=== PATIENT | female | born 1955 | race Two or more races ===

== ENCOUNTER → 2016-09-22 | Outpatient (CLI) | payer BC ==
[~2016-09-22] MED LIST: CHOL1000 PO; LATA0.5S OP; MULT-506 PO; OFLO0.3S OP; OMEG10007 PO; PRED1SUS3 OPR
--- NOTE | 2016-09-23 14:16 | MAMMOGRAPHY REPORT ---
BILATERAL DIGITAL SCREENING MAMMOGRAM TOMOSYNTHESIS WITH CAD: 09/22/2016 CLINICAL HISTORY: Routine screening. Patient has no complaints. TECHNIQUE: Breast tomosynthesis in addition to standard 2D mammography was performed. Current study was also evaluated with a Computer Aided Detection (CAD) system. COMPARISON: Comparison is made to exams dated: 02/04/2015 mammogram, 06/28/2013 mammogram, 09/29/2009 mammogram, and 09/24/2009 mammogram - [facility]. BREAST COMPOSITION: There are scattered areas of fibroglandular density in both breasts. FINDINGS: There is a possible small cluster of calcifications in the left breast middle depth along the posterior nipple line on the MLO view, not well-seen on the cc view. Recommend spot magnificat ion views for further evaluation. The remainder of both breasts are stable compared to prior exams, without suspicious masses, calcifi cations, or areas of architectural distortion noted. IMPRESSION: ACR BI-RADS CATEGORY 0: INCOMPLETE EVALUATION: NEED ADDITIONAL IMAGING EVALUATION Possible small cluster of calcifications in the left breast, for which additional imaging evaluation is recommended. The patient will be called to schedule an appointment. Approximately 10% of breast cancers are not detected with mammography. A negative mammographic repor t should not delay biopsy if a clinically suggestive mass is present. Zuly Newell M.D. /:09/22/2016 17:07:17 Oven Operator Automatic: Martha SORIANO([place])(Janeen)([place]), [facility] letter sent: Addl Imaging 0 BI-RADS Code: ACR BI-RADS Category 0: Incomplete Evaluation: Need Additional Imaging Evaluation
== END | disposition home or self-care (01) ==
LOC: C.MAMM 16:43
PROVIDERS: ATTEND Family Medicine
DX: Z12.31 Encounter for screening mammogram for malignant neoplasm of breast (principal)

== ENCOUNTER → 2016-10-04 | Outpatient (CLI) | payer BC ==
--- NOTE | 2016-10-04 14:37 | MAMMOGRAPHY REPORT ---
UNILATERAL LEFT DIGITAL DIAGNOSTIC MAMMOGRAM: 10/04/2016 CLINICAL HISTORY: 61-year-old woman called back from screening mammography for possible clustered mi crocalcifications in the left breast. TECHNIQUE: Spot magnification left CC and ML views were obtained. COMPARISON: Comparison is made to exams dated: 09/22/2016 mammogram, 02/04/2015 mammogram, 06/28/2013 mammogram, 09/24/2009 mammogram, 09/29/2009 mammogram, and 09/29/2009 ultrasound - [facility]. BREAST COMPOSITION: There are scattered areas of fibroglandular density in the left breast. FINDINGS: There is a faint cluster of punctate and amorphous microcalcifications in the 9:00 middle one third of the left breast that measures approximately 8 x 13 mm. No obvious associated asymmetr y, mass or architectural distortion. In comparing to prior available mammograms, these were not elvira tejas identified in the past and are therefore indeterminate. Definitive characterization with tissu e sampling is recommended. IMPRESSION: ACR BI-RADS CATEGORY 4B: INTERMEDIATE SUSPICION FOR MALIGNANCY 1. Stereotactic guided left breast biopsy is recommended for a faint cluster of punctate and amorph ous microcalcifications measuring approximately 8 x 13 mm in the 9:00 middle one third of the left b reast. These results and recommendations were discussed with the patient at the time of the exam. She was given the phone number to call and schedule the biopsy appointment at her convenience. Approximately 10% of breast cancers are not detected with mammography. A negative mammographic repor t should not delay biopsy if a clinically suggestive mass is present. Anne Salazar M.D. ay/:10/04/2016 10:21:15 Pleater: Sowmya SORIANO([place])(M), [facility] letter sent: Abnormal 4/5 BI-RADS Code: ACR BI-RADS Category 4B: Intermediate Suspicion For Malignancy
== END | disposition home or self-care (01) ==
LOC: C.MAMM 09:18
PROVIDERS: ATTEND Family Medicine
DX: R92.0 Mammographic microcalcification found on diagnostic imaging of breast (principal)

== ENCOUNTER → 2016-10-22 | Outpatient (CLI) | payer BC ==
--- NOTE | 2016-10-22 13:34 | Discharge Instructions ---
Discharge Instructions Procedure Procedure Date: Oct 22, 2016. Reason for visit: Left Microcalcifications. Discharge Discharge Date: Oct 22, 2016. Discharge Diagnosis: status post breast biopsy Instructions Activity Recommendations: Additional Limitations (see below) Return to School/Work: no limitations Recommended Home Diet: No Limitations Provider Instructions: ACTIVITY RECOMMENDATIONS: * No lifting, pushing, pulling or exercising the affected side for three days. RETURN TO SCHOOL/WORK: * You may return to work/school after the procedure, but do not perform any strenuous activities for 24 to 48 hours. MEDICATIONS: * Tylenol (two 325 mg) every four to six hours if needed for mild pain (if not allergic to Tylenol). DIET: * Resume previous diet. SPECIAL CARE INSTRUCTIONS: * Keep biopsy site dry for 24 hours. May shower after 24 hours, but do not soak (bathe) incision. * May remove Tegaderm (plastic patch) tomorrow AFTER showering. * Leave the steri-strips on for one week. Allow the steri-strips to fall off by themselves. If not off after one week, you may remove them. You may place a Bandaid crosswise over the strips, if desired. * Apply ice 10 minutes on and 10 minutes off as needed. * Wear a bra at bedtime to sleep more comfortably for 2-3 days. * Your referring physician should have the results after approximately 5 to 7 business days. * Call for unusual bleeding, fever, drainage, etc or if you have any questions call during normal business hours or after hours call Dr Newell, . FOLLOW UP VISIT: Follow-up with Referring Physician as scheduled. Rosie Díazy Recommendations: Call your doctor if: * Temperature above 101 degrees * Pain not relieved by pain medicine ordered * There is increased drainage or redness from any incision * You have any unanswered questions or concerns. Your Doctors Instructions noted above were prepared by provider Zuly Newell. Patient Signature Section: Patient Instructions Signature Page Beatriz Morseterrence Patient (or Guardian) Signature/Date: I have read and understand the instructions given to me by my caregivers. Caregiver/RN/Doctor Signature/Date: The above-named patient and/or guardian has received patient instructions on this date. + Original Patient Signature Page (only) stays with chart. Please make copy for patient.
--- NOTE | 2016-10-22 14:09 | MAMMOGRAPHY REPORT ---
UNILATERAL LEFT DIGITAL DIAGNOSTIC MAMMOGRAM: 10/22/2016 CLINICAL HISTORY: Status post left breast stereotactic biopsy. TECHNIQUE: Postprocedural left CC and ML views were obtained. COMPARISON: Comparison is made to exams dated: 09/22/2016 mammogram, 02/04/2015 mammogram, 06/28/2013 mammogram, and 09/29/2009 mammogram - [facility]. BREAST COMPOSITION: There are scattered areas of fibroglandular density in the left breast. FINDINGS: A new biopsy marker clip is seen at the site of the biopsied calcifications in the left 9 :00 breast. No significant postbiopsy hematoma is seen. IMPRESSION: POST PROCEDURE IMAGING FOR MARKER PLACEMENT New biopsy marker clip status post stereotactic biopsy of left breast calcifications. Pathology res ults are pending. Approximately 10% of breast cancers are not detected with mammography. A negative mammographic repor t should not delay biopsy if a clinically suggestive mass is present. Zuly Newell M.D. ah/:10/22/2016 14:00:36 Marine Electronics Repairer: Rosalinda SORIANO([place])(M), [facility] BI-RADS Code: Post Procedure Imaging For Marker Placement
--- NOTE | 2016-10-22 14:09 | MAMMOGRAPHY REPORT ---
STEREOTACTIC GUIDED BIOPSY LEFT BREAST: 10/22/2016 CLINICAL HISTORY: Indeterminate calcifications in the left 9:00 breast. PATIENT CONSENT: The procedure, risks, benefits, and alternatives of stereotactic biopsy with clip p lacjennifer were discussed with the patient, and verbal and written consent was obtained. A timeout wa s performed immediately prior to the procedure. PROCEDURE DESCRIPTION: With stereotactic guidance, aseptic technique, and lidocaine as a local anest hetic (1% lidocaine to anesthetize the skin and 1% lidocaine with epinephrine to anesthetize the nina per tissues), the area of concern was sampled multiple times with a 9-gauge vacuum-assisted biopsy n eedle ([employer]iva). The path of approach was medial. The specimen radiograph demonstrates calcifi cations to be present in the samples. A metallic marker clip was placed at the biopsy site. This w as confirmed on postprocedure mammograms. Direct pressure was applied at the biopsy site and hemost asis was readily achieved. The patient tolerated the procedure without complication. She was given wound care instructions. COMPARISON: Comparison is made to exams dated: 10/04/2016 mammogram, 09/22/2016 mammogram, 02/04/2015 m ammogram, 06/28/2013 mammogram, and 09/29/2009 mammogram - [facility]. IMPRESSION: STEREOTACTIC GUIDED BIOPSY Stereotactic biopsy of indeterminate calcifications in the left 9:00 breast, with clip placement. T he patient will receive pathology results from her referring provider. Zuly Newell M.D. /:10/22/2016 13:36:23 Industrial Maintenance Millwright: Rosalinda SORIANO(R)(M), [facility]
== END | disposition home or self-care (01) ==
LOC: C.MAMM 12:45
PROVIDERS: ATTEND Family Medicine
DX: R92.1 Mammographic calcification found on diagnostic imaging of breast (principal)

== ENCOUNTER → 2017-04-13 | Day surgery (SDC) | payer BC ==
[2017-04-05 09:03] VITALS: Ht 160 cm; Wt 62.7 kg
[~2017-04-13] VITALS: Ht 160 cm; Wt 62.7 kg
[~2017-04-13] MED LIST changes: +500ML BSS 0.3ML EPI 1:1000PF IRRIG ONE; +ACETAMINOPHEN 325 MG TAB PO PRN; +AMVISC PLUS 0.8ML SYRINGE INT OCU ONE; +ATROPINE SULFATE 0.1 MG/ML 5ML SYR IV PRN; +BETAXOLOL HCL 0.25% OP SUSP PER DROP CHARGE OPR SCH; +BRIMONIDINE TART 0.2% OP SOLN PER DROP CHARGE ONE; +BSS FLUSH ONE; +ENDOCOAT 0.85ML SYRINGE INT OCU ONE; +EpHEDrine SULFATE INJ 50 MG/ML AMP IV PRN; +EpINEphrine INJ 1MG/ML AMP 1 MG/ML AMP ONE; +LACTATED RINGER'S 1000ML 500 ML IV SCH; +LIDOCAINE 4% OP SOLN DROP CHARGE ONE; +LIDOCAINE 4% OP SOLN DROP CHARGE OPR SCH; +LIDOCAINE HCL 1% MPF 2 ML VIAL ONE; +MIDAZOLAM HCL 1 MG/ML 2ML VIAL ONE; +MIX: 4ML BSS 1ML EPI 1:1000 PF INSTIL ONE; +MOXIFLOXACIN OPH SOLN PER DROP CHARGE ONE; +OCUCOAT 1 ML SOLN IO ONE; +ONDANSETRON INJ 2 MG/ML 2 ML VIAL IV PRN; +POVIDONE-IODINE OP SOLN 30 ML BTL ONE; +PROPARACAINE 0.5% OP SOLN PER DROP CHARGE OPR SCH; +TOBRAMYCIN/DEXAMETHASONE OPH OINT PER APPLN CHARGE ONE
[2017-04-13] MEDS: PHENYLEPHRINE HCL 2.5% OP SOLN PER DROP CHARGE OPR SCH ×2 (06:37→06:42)
[2017-04-13] MEDS: CYCLOPENTOLATE HCL 1% OP SOLN PER DROP CHARGE OPR SCH ×2 (06:39→06:44)
[2017-04-13] MEDS: TROPICAMIDE 1% OP SOLN PER DROP CHARGE OPR SCH ×2 (06:39→06:43)
[2017-04-13] MEDS: MOXIFLOXACIN OPH SOLN PER DROP CHARGE OPR SCH ×2 (06:40→06:50)
--- NOTE | 2017-04-13 06:54 | History & Physical Bridge - SC ---
H&P Re-Evaluation Bridge Note: I have examined the patient, reviewed the History & Physical and in the interval since the performance of the History & Physical I have noted the following changes of clinical significance: No changes noted
[2017-04-13 07:20] VITALS: TEMP 36.2
--- NOTE | 2017-04-13 07:29 | Anesthesia Progress Nt - [facility] ---
Anesthesia Post Op Note Date & Time Apr 13, 2017 at 07:29 Vital Signs Pain Intensity: 0 Vital Signs Past 12 Hours Date Time Temp Pulse Resp B/P (MAP) Pulse Ox O2 Delivery O2 Flow Rate FiO2 04/13/17 07:20 36.2 56 16 122/79 (93) 100 Room Air 04/13/17 06:28 36.6 56 16 150/91 (110) 99 Room Air Notes Mental Status: alert / awake / arousable, participated in evaluation Pt Amnestic to Procedure: Yes Nausea / Vomiting: adequately controlled Pain: adequately controlled Airway Patency, RR, SpO2: stable & adequate BP & HR: stable & adequate Hydration State: stable & adequate Anesthetic Complications: no major complications apparent
--- NOTE | 2017-04-13 07:32 | Discharge Instructions-SurgCtr ---
Discharge Instructions Date of Service Apr 13, 2017. Visit Reason for Visit: Cataract Right Eye Discharge Discharge Diagnosis / Problem: Pseudophakia Right Eye Discharge Goals Goal(s): Improve function Activity Recommendations Activity Limitations: per Instructions/Follow-up section Lifting Limitations: no more than 10 pounds Exercise/Sports Limitations: as tolerated, gradually increase as tolerated May Resume Sexual Activity: when tolerated Shower/Bathe: tomorrow Driving or Machine Use: resume 1 day after discharge As noted Anesthesia . Post Anesthesia Instructions: If you have had General Anesthesia or IV Sedation: * Do not drive today. * Resume driving when surgeon permits. * Do not make important decisions or sign legal documents today. * Call surgeon for: 1. Temperature elevations greater than 101 degrees F. 2. Uncontrollable pain. 3. Excessive bleeding. 4. Persistent nausea and vomiting. 5. Medication intolerance (nausea, vomiting or rash). * For nausea and vomiting use only clear liquids such as: tea, soda, bouillon until nausea subsides, then gradually increase diet as tolerated. * If you have any concerns or questions, call your surgeon's office. If physician is unavailable and it is an emergency, call 911 or go to the nearest emergency room. . Diet Recommendations Home Diet: resume previous diet Procedures Procedures Performed: Right Cataract Phacoemulsification With Intraocular Lens Implant Pending Studies Studies pending at discharge: no Medical Emergencies . Who to Call and When: Medical Emergencies: If at any time you feel your situation is an emergency, please call 911 immediately. . Non-Emergent Contact Non-Emergency issues call your: Bucket Hooker Contact Number: [phone] . . "Provider Documentation" section prepared by Harris Yeh. .
--- NOTE | 2017-04-13 07:34 | [facility] Post Operative Brief Note ---
Immediate Operative Summary Operative Date Apr 13, 2017. Pre-Operative Diagnosis Right Eye Cataract Post-Operative Diagnosis Same Procedure(s) Performed Right Cataract Phacoemulsification With Intraocular Lens Implant Surgeon Dr Yeh Fusing Machine Tender Surgeon(s) None Estimated Blood Loss 0ml Findings Nuclear cataract Fluids (cc crystalloids) 300 ml Specimens None Drains none Anesthesia L/S Complication(s) None Disposition Recovery Room / PACU Good Home
--- NOTE | 2017-04-13 07:53 | Discharge Instructions-SurgCtr ---
Discharge Instructions Date of Service Apr 13, 2017. Visit Reason for Visit: Cataract Right Eye Discharge Discharge Diagnosis / Problem: Pseudophakia right eye Discharge Goals Goal(s): Improve function Medications Restart Stopped Medication(s): ACTIVITY RECOMMENDATIONS: * Light activities. * Mild irritation and blurred vision are common for the first few days. * You may walk outside, read, watch television. * Redness around the white part of the eye is common. MEDICATIONS: Resume previous medications unless instructed otherwise by your surgeon. Start all eye drops at 1 pm today: * Eye drops (today and tomorrow): Prednisone - one drop in operative eye every 3 hours while awake Ofloxacin - one drop in operative eye every 3 hours while awake SPECIAL CARE INSTRUCTIONS: * Tape plastic shield over eye to sleep at night. Call your doctor at with any concerns or problems. FOLLOW UP VISIT: Follow-up with Dr Yeh at [facility] as scheduled. Activity Recommendations Activity Limitations: per Instructions/Follow-up section Lifting Limitations: no more than 10 pounds Exercise/Sports Limitations: as tolerated May Resume Sexual Activity: when tolerated Shower/Bathe: tomorrow Driving or Machine Use: resume 1 day after discharge As noted Anesthesia . Post Anesthesia Instructions: If you have had General Anesthesia or IV Sedation: * Do not drive today. * Resume driving when surgeon permits. * Do not make important decisions or sign legal documents today. * Call surgeon for: 1. Temperature elevations greater than 101 degrees F. 2. Uncontrollable pain. 3. Excessive bleeding. 4. Persistent nausea and vomiting. 5. Medication intolerance (nausea, vomiting or rash). * For nausea and vomiting use only clear liquids such as: tea, soda, bouillon until nausea subsides, then gradually increase diet as tolerated. * If you have any concerns or questions, call your surgeon's office. If physician is unavailable and it is an emergency, call 911 or go to the nearest emergency room. . Diet Recommendations Home Diet: resume previous diet Procedures Procedures Performed: Right Cataract Phacoemulsification With Intraocular Lens Implant Pending Studies Studies pending at discharge: no Medical Emergencies . Who to Call and When: Medical Emergencies: If at any time you feel your situation is an emergency, please call 911 immediately. . Non-Emergent Contact Non-Emergency issues call your: Travel Agency Manager Contact Number: [phone] . . "Provider Documentation" section prepared by Harris Yeh. .
[2017-04-13 08:07] VITALS: BP 111/77; PULSE 55; O2SAT 100
--- NOTE | 2017-04-13 08:35 | OPERATIVE REPORT ---
DATE OF OPERATION: 04/13/2017 PREOPERATIVE DIAGNOSIS: Presenile nuclear cataract, right eye. POSTOPERATIVE DIAGNOSIS: Same. PROCEDURE: Phacoemulsification of right cataract with posterior chamber lens implant, type Bausch & Lomb, model MI60L, power +11.0 Diopters. ANESTHESIA: Local standby. SURGEON: Dr. Yeh. COMPLICATIONS: None. OPERATING TIME: 10 minutes. OPERATION AND FINDINGS: PROCEDURE: The right pupil was dilated. The anesthetic was administered using a topical technique. The right eye was prepped and draped. A speculum was placed. A paracentesis was placed. The chamber was filled with Amvisc Plus and EndoCoat. Epinephrine solution was used. A clear corneal incision was formed. A capsulorrhexis was performed. The nucleus was hydrodissected. The lens was removed with phacoemulsification. Time was 1.78 seconds. The aspiration unit was used to remove the cortex. The capsule was filled with Amvisc Plus. The lens implant was folded and placed into the capsule. The incision was hydrated. The Amvisc was aspirated. The wound was secure. The chamber was deep. The pupil was round. TobraDex ointment and Vigamox solution were placed. The speculum was removed. DISPOSITION: The patient was returned to the recovery room in stable condition. I attest to the content of the Intraoperative Record and any orders documented therein. Any exceptions are noted below. I attest to the content of the Intraoperative Record and any orders documented therein. Any exception s are noted below.
== END | disposition home or self-care (01) ==
LOC: X.SURG 06:13
PROVIDERS: ATTEND Specialist
DX: H25.11 Age-related nuclear cataract, right eye (principal)

== ENCOUNTER → 2017-04-20 | Day surgery (SDC) | payer BC ==
[2017-04-19 09:53] VITALS: Ht 160 cm; Wt 62.7 kg
[~2017-04-20] VITALS: Ht 160 cm; Wt 62.7 kg
[~2017-04-20] MED LIST changes: +BETAXOLOL HCL 0.25% OP SUSP PER DROP CHARGE OPL SCH; -BETAXOLOL HCL 0.25% OP SUSP PER DROP CHARGE OPR SCH; +LIDOCAINE 4% OP SOLN DROP CHARGE OPL SCH; -LIDOCAINE 4% OP SOLN DROP CHARGE OPR SCH; +PROPARACAINE 0.5% OP SOLN PER DROP CHARGE OPL SCH; -PROPARACAINE 0.5% OP SOLN PER DROP CHARGE OPR SCH
[2017-04-20] MEDS: PHENYLEPHRINE HCL 2.5% OP SOLN PER DROP CHARGE OPL SCH ×2 (06:48→06:57)
[2017-04-20] MEDS: TROPICAMIDE 1% OP SOLN PER DROP CHARGE OPL SCH ×2 (06:54→06:58)
[2017-04-20] MEDS: MOXIFLOXACIN OPH SOLN PER DROP CHARGE OPL SCH ×2 (06:54→07:00)
[2017-04-20] MEDS: CYCLOPENTOLATE HCL 1% OP SOLN PER DROP CHARGE OPL SCH ×2 (06:55→06:59)
--- NOTE | 2017-04-20 07:40 | Discharge Instructions-SurgCtr ---
Discharge Instructions Date of Service Apr 20, 2017. Visit Reason for Visit: Cataract Left Eye Discharge Discharge Diagnosis / Problem: lens implant left eye Discharge Goals Goal(s): Improve function Activity Recommendations Activity Limitations: resume your previous activity Lifting Limitations: no more than 10 pounds Exercise/Sports Limitations: gradually increase as tolerated May Resume Sexual Activity: when tolerated Shower/Bathe: tomorrow Driving or Machine Use: resume 1 day after discharge Anesthesia . Post Anesthesia Instructions: If you have had General Anesthesia or IV Sedation: * Do not drive today. * Resume driving when surgeon permits. * Do not make important decisions or sign legal documents today. * Call surgeon for: 1. Temperature elevations greater than 101 degrees F. 2. Uncontrollable pain. 3. Excessive bleeding. 4. Persistent nausea and vomiting. 5. Medication intolerance (nausea, vomiting or rash). * For nausea and vomiting use only clear liquids such as: tea, soda, bouillon until nausea subsides, then gradually increase diet as tolerated. * If you have any concerns or questions, call your surgeon's office. If physician is unavailable and it is an emergency, call 911 or go to the nearest emergency room. . Instructions / Follow-Up Instructions / Follow-Up ACTIVITY RECOMMENDATIONS: * Light activities. * Mild irritation and blurred vision are common for the first few days. * You may walk outside, read, watch television. * Redness around the white part of the eye is common. MEDICATIONS: Resume previous medications unless instructed otherwise by your surgeon. Start all eye drops at 1 pm today: * Eye drops (today and tomorrow): Prednisone - one drop in operative eye every 3 hours while awake Ofloxacin - one drop in operative eye every 3 hours while awake SPECIAL CARE INSTRUCTIONS: * Tape plastic shield over eye to sleep at night. Call your doctor at with any concerns or problems. FOLLOW UP VISIT: Follow-up with Dr Yeh at [place] office as scheduled. Diet Recommendations Home Diet: no limitations Procedures Procedures Performed: Left Eye Cataract Phacoemulsification With Intraocular Lens Implant Pending Studies Studies pending at discharge: no Medical Emergencies . Who to Call and When: Medical Emergencies: If at any time you feel your situation is an emergency, please call 911 immediately. . Non-Emergent Contact Non-Emergency issues call your: Qa Automation Architect Call Non-Emergent contact if: your pain is not controlled [phone] . . "Provider Documentation" section prepared by Harris Yeh. .
[2017-04-20 07:43] VITALS: TEMP 36.4
--- NOTE | 2017-04-20 07:43 | [facility] Operative Report ---
Operative Report Date of Service Apr 20, 2017. Operative Report 1. PREOPERATIVE DIAGNOSIS: Pre Senile nuclear cataract, left eye. 2. POSTOPERATIVE DIAGNOSIS: Pre Senile nuclear cataract, left eye. 3. PROCEDURE: Phacoemulsification of left cataract with posterior chamber lens implant, type Bausch & Lomb, model MI60L, power +12.5 diopters. ANESTHESIA: Local standby. SURGEON: Dr. Yeh. COMPLICATIONS: None. OPERATING TIME: 10 minutes. 4. OPERATION AND FINDINGS: DESCRIPTION OF PROCEDURE: The left pupil was dilated. The anesthetic was administered using a topical technique. The left eye was prepped and draped. A speculum was placed. A clear corneal incision was formed. The chamber was filled with Amvisc Plus and Endocoat. Epinephrine solution was used. A paracentesis was placed. A capsulorrhexis was performed. The nucleus was hydrodissected. The lens was removed with phacoemulsification. Time was 2.02 seconds. The aspiration unit was used to remove the cortex. The capsule was filled with Amvisc Plus. The lens implant was folded and placed into the capsule. The incision was hydrated. The Amvisc was aspirated. The wound was secure. The chamber was deep. The pupil was round. Brimonidine, TobraDex ointment and Vigamox solution were placed. The speculum was removed. The patient was returned to the Recovery Room in stable condition. I attest to the content of the Intraoperative Record and any orders documented therein. Any exceptions are noted below. The scribe's documentation has been prepared in my presence, under my direction and personally reviewed by me in its entirety. I confirm that the note above accurately reflects all work, treatment, procedures, and medical decision making performed by me. I personally scribed for Harris Yeh M.D. ([email or web address]) on 04/20/17 at 07:43. Electronically submitted by Ana Marquez ([email or web address]).
[2017-04-20 08:16] VITALS: BP 124/64; PULSE 52; O2SAT 100
--- NOTE | 2017-04-20 08:23 | Anesthesiology Progress Note ---
Anesthesia Post Op Note Date & Time Apr 20, 2017 at 08:23 Vital Signs Pain Intensity: 4.0 Vital Signs Past 12 Hours Date Time Temp Pulse Resp B/P (MAP) Pulse Ox O2 Delivery O2 Flow Rate FiO2 04/20/17 08:16 52 16 124/64 (84) 100 Room Air 04/20/17 07:43 36.4 49 16 121/76 (91) 95 Room Air 04/20/17 06:38 36.4 54 16 141/86 (104) 100 Room Air Notes Mental Status: alert / awake / arousable, participated in evaluation Pt Amnestic to Procedure: No Nausea / Vomiting: adequately controlled Pain: adequately controlled Airway Patency, RR, SpO2: stable & adequate BP & HR: stable & adequate Hydration State: stable & adequate Anesthetic Complications: no major complications apparent level of amnesia appropriate for MAC
== END | disposition home or self-care (01) ==
LOC: X.SURG 06:25
PROVIDERS: ATTEND Specialist
DX: H26.8 Other specified cataract (principal); J45.909 Unspecified asthma, uncomplicated; Z86.73 Personal history of transient ischemic attack (TIA), and cerebral infarction without residual deficits

== ENCOUNTER → 2017-11-01 | Outpatient (CLI) | payer OTHER ==
[~2017-11-01] MED LIST changes: -500ML BSS 0.3ML EPI 1:1000PF IRRIG ONE; -ACETAMINOPHEN 325 MG TAB PO PRN; -AMVISC PLUS 0.8ML SYRINGE INT OCU ONE; -ATROPINE SULFATE 0.1 MG/ML 5ML SYR IV PRN; -BETAXOLOL HCL 0.25% OP SUSP PER DROP CHARGE OPL SCH; -BRIMONIDINE TART 0.2% OP SOLN PER DROP CHARGE ONE; -BSS FLUSH ONE; -ENDOCOAT 0.85ML SYRINGE INT OCU ONE; -EpHEDrine SULFATE INJ 50 MG/ML AMP IV PRN; -EpINEphrine INJ 1MG/ML AMP 1 MG/ML AMP ONE; -LACTATED RINGER'S 1000ML 500 ML IV SCH; -LIDOCAINE 4% OP SOLN DROP CHARGE ONE; -LIDOCAINE 4% OP SOLN DROP CHARGE OPL SCH; -LIDOCAINE HCL 1% MPF 2 ML VIAL ONE; -MIDAZOLAM HCL 1 MG/ML 2ML VIAL ONE; -MIX: 4ML BSS 1ML EPI 1:1000 PF INSTIL ONE; -MOXIFLOXACIN OPH SOLN PER DROP CHARGE ONE; -OCUCOAT 1 ML SOLN IO ONE; -ONDANSETRON INJ 2 MG/ML 2 ML VIAL IV PRN; -POVIDONE-IODINE OP SOLN 30 ML BTL ONE; -PROPARACAINE 0.5% OP SOLN PER DROP CHARGE OPL SCH; -TOBRAMYCIN/DEXAMETHASONE OPH OINT PER APPLN CHARGE ONE
[2017-11-01 17:04] LABS: BASO % 0.6 %; BASO ABS # 0.05 K/uL (0-0.2); EOS % 1.9 %; EOS ABS # 0.15 K/uL (0-0.5); HEMATOCRIT 35.1 % (37-47); HEMOGLOBIN 11.6 g/dL (12.0-16.0); IG# 0.03 K/uL (0.00-0.02); LYMPH % 32.7 %; LYMPH ABS # 2.59 K/uL (1.2-3.4); MEAN CELL VOLUME 64.4 fL (80-100); MEAN CORPUSCULAR HEMOGLOBIN 21.3 pg (25-34); MONO % 4.3 %; MONO ABS # 0.34 K/uL (0.11-0.59); NEUT % 60.1 %; NEUT ABS # 4.75 K/uL (1.4-6.5); PLATELET COUNT 259 K/uL (130-400); RED CELL DISTRIBUTION WIDTH CV 15.9 % (11.5-14.5); RED CELL DISTRIBUTION WIDTH SD 36.2 fL (36.4-46.3); WHITE BLOOD COUNT 7.91 K/uL (4.8-10.8)
== END | disposition home or self-care (01) ==
LOC: C.LABBC 15:08
PROVIDERS: ATTEND Specialist
DX: M31.6 Other giant cell arteritis (principal)

== ENCOUNTER 2018-12-15 11:01 | Observation (INO) ==
[2018-12-15] MEDS ORDERED: LORazepam 2 MG/ML VIAL (IM USE) ONE (11:08)
[2018-12-15 11:25] LABS: Basophils # (auto) 0.04 K/uL (0-0.2); Basophils % (auto) 0.4 %; Eosinophils # (auto) 0.16 K/uL (0-0.5); Eosinophils % (auto) 1.4 %; Hematocrit (blood only) 38.3 % (37-47); Hemoglobin 12.4 g/dL (12.0-16.0); Immature Granulocytes # (auto) 0.03 K/uL (0.00-0.02); Immature Granulocytes % (auto) 0.3 %; Lymphocytes # (auto) 2.81 K/uL (1.2-3.4); Lymphocytes % (auto) 24.6 %; Mean Corpuscular Hgb Conc 32.4 g/dL (32-36); Mean Corpuscular Volume 65.2 fL (80-100); Monocytes # (auto) 0.89 K/uL (0.11-0.59); Monocytes % (auto) 7.8 %; Neutrophils # (auto) 7.49 K/uL (1.4-6.5); Neutrophils % (auto) 65.5 %; Platelet Count 262 K/uL (130-400); RDW Coefficient of Variation 16.3 % (11.5-14.5); RDW Standard Deviation 37.3 fL (36.4-46.3); Red Blood Count 5.87 M/uL (4.2-5.4); White Blood Count 11.42 K/uL (4.8-10.8)
--- NOTE | 2018-12-15 11:27 | CT Scan Report ---
CT head/brain wo con CLINICAL HISTORY: Stroke evaluation COMPARISON STUDY: MRI dated 08/13/2013 TECHNIQUE: Axial CT of the brain is performed from the vertex to the skull base. IV contrast was not administered for this examination. A dose lowering technique was utilized adhering to the principles of ALARA. CT DOSE: FINDINGS: No intra or extra-axial mass lesions are visualized. There is no CT evidence of acute cortical infarc tion. There is no evidence of midline shift. There is no acute hemorrhage. No calvarial fractures ar e visualized. There is no evidence of pathologic ventricular dilatation. There is no evidence of acute sinusitis IMPRESSION: No acute intracranial findings Electronically signed by: Alexandro Killian M.D. 12/15/2018 11:25 AM
[2018-12-15 11:30] LABS: iSTAT Creatinine 0.8 mg/dl (0.6-1.3); iSTAT Hemoglobin 13.6 g/dl (12.0-16.0); iSTAT Ionized Calcium 1.23 mmol/l (1.12-1.32); iSTAT Potassium 3.6 mEq/L (3.3-5.0)
[2018-12-15] MEDS ORDERED: LORazepam 2 MG/4 ML VIAL ONE (11:32)
[2018-12-15 11:35] LABS: Partial Thromboplastin Ratio 1.1; Partial Thromboplastin Time 28.9 Seconds (21.0-31.0); Prothrombin Time 10.4 Seconds (9.0-12.0)
[2018-12-15 11:42] LABS: Alanine Aminotransferase 26 U/L (12-78); Albumin Level 4.1 gm/dl (3.4-5.0); Aspartate Aminotransferase 17 U/L (15-37); BUN Creatinine Ratio 15.9 (10-20); Blood Urea Nitrogen 14 mg/dl (7-18); Calcium 9.9 mg/dl (8.5-10.1); Carbon Dioxide 26 mmol/L (21-32); Chloride 104 mmol/L (98-107); Glucose 106 mg/dl (70-99); Magnesium 1.9 mg/dl (1.8-2.4); Potassium 3.5 mmol/L (3.5-5.1); Sodium 137 mmol/L (136-145)
[2018-12-15 11:46] LABS: Microcytosis Present; Ovalocytes 1+; Tear Drop Cells 1+
[2018-12-15 11:47] LABS: Alkaline Phosphatase 108 U/L (45-117); Bilirubin,Total 0.9 mg/dl (0.2-1); Globulin 4.2 gm/dl (2.5-4.0); Total Protein 8.3 gm/dl (6.4-8.2); Troponin I < 0.015 ng/ml (0-0.045)
--- NOTE | 2018-12-15 12:14 | XRay Report ---
XR chest 1V portable CLINICAL HISTORY: 63 years-old Female presenting with ams. TECHNIQUE: Portable upright AP view of the chest was obtained. COMPARISON: None. FINDINGS: Cardiomediastinal silhouette normal. Mildly low lung volumes. No focal opacity. No large effusion or pneumothorax. Degenerative changes of the thoracic spine. Upper abdomen normal. IMPRESSION: 1. Mildly low lung volumes. No acute cardiopulmonary disease. Electronically signed by: German Pretty M.D. 12/15/2018 12:13 PM
[2018-12-15 12:46] LABS: Appearance Urine Clear (Clear); Bilirubin Urine Negative (Negative); Blood Urine Negative (Negative); Color Urine Yellow; Glucose Urine UA Negative (Negative); Ketones Urine Negative (Negative); Leukocyte Esterase Urine Negative (Negative); Nitrite Urine Negative (Negative); Protein Urine Negative (Negative); Specific Gravity Urine 1.016 (1.000-1.030); Urobilinogen Urine Negative (Negative); pH Urine 7.5 (4.5-7.5)
--- NOTE | 2018-12-15 15:52 | History & Physical Report ---
Date of Service December 15, 2018 Assessment & Plan (1) Seizure: 63 y/o F Hx Migraines, CVA related to migraine disorder. The pt had acute L sided numbness at home this AM. She describes numbness of her L upper and lower extremities, along with flushing of the L side of her face and conjunctiv al injection. She was driven to the hospital by her and her numbness and flushing had largely resolved on route. She had developed L sided paralysis however and was unable to lift up her L arm. When the ER attending was in the room conversing with the family, she had sudden onset of R sided arm flailing and head twisting lasting nearly a minute. This responded to 2mg of IV Ativan. At no time did she loose consciousness, exhibit incontinence or bite her tongue. She states that the prior day she had a mild headache, but otherwise has not had recent migraines. She has not previously had similar symptoms and does not have a history of seizures. At the time of admission, she has persistent L sided weakness, mostly of the upper extremity and minimal numbness. 1) Constellation of neurological symptoms - including CVA-like symptoms with persistent L weakness and involuntary movement of the R side. I might have speculated that this was a grand mal seizure in the presence of L hemiparalysis, but she did not lose consciousness so we are struggling to explain this. An MRI with/without chavez is pending as are prolactin and CK levels. Migraine with hemiplegia is possible although she has not had a headache since the prior day. We have requested a neurology consult and an EEG. A psychogenic element cannot be ruled out considering her recent distress owing to her sick grandchild. 2) History of migraines - does not currently require any specific treatment. Full code - SCDs - total time for this admit including review of labs, meds, imaging, records - discussion with pt, and ER attending - 45 min Present on Admission?: Yes (2) History of stroke: History of Present Illness Chief Complaint: Seizure activity Primary Care Provider: Kedar Edgar 63 y/o F Hx Migraines, CVA related to migraine disorder. The pt had acute L sided numbness at home this AM. She describes numbness of her L upper and lower extremities, along with flushing of the L side of her face and conjunctival injection. She was driven to the hospital by her and her numbness and flushing had largely resolved on route. She had developed L sided paralysis however and was unable to lift up her L arm. When the ER attending was in the room conversing with the family, she had sudden onset of R sided arm flailing and head twisting lasting nearly a minute. This responded to 2mg of IV Ativan. At no time did she loose consciousness, exhibit incontinence or bite her tongue. She states that the prior day she had a mild headache, but otherwise has not had recent migraines. She has not previously had similar symptoms and does not have a history of seizures. At the time of admission, she has persistent L sided weakness, mostly of the upper extremity and minimal numbness. PMH: 1) Migraine disorder - previously required Topamax prophylaxis. 2) CVA - incidental finding on MRI - thought related to migraines rather than any vascular disease. Surgical: denies Social: Hails from [place] - in [place] since [place]. Does not drink or smoke. She is recently under significant stress as a grandson in [place] is in poor health in a NICU after being born prematurely. Family: States both parents due to "natural causes" Allergies Allergy/AdvReac Type Severity Reaction Status Date / Time Sulfa (Sulfonamide Allergy Severe STOPPED Verified 12/15/18 11:56 Antibiotics) BREATHING Home Medications Home Medications Medication Instructions Recorded Confirmed Type cholecalciferol (vitamin D3) 5,000 unit PO DAILY 12/15/18 12/15/18 History [Vitamin D3] multivitamin 1 tab PO DAILY 12/15/18 12/15/18 History omega [id number] oil [Fish Oil] 1 cap PO DAILY 12/15/18 12/15/18 History peg [id number] [Dry 1 drp OPHTHALMIC (EYE) BID PRN 12/15/18 12/15/18 History Eye Relief] Past Med/Surg History Medical History History of stroke Hx of migraines No pertinent family history No pertinent past medical history Surgical History No pertinent past surgical history Family History Other No pertinent family history Social History Feels Safe at Home: Yes Smoking Status: Unknown if ever smoked Hx Substance Use: No Review of Systems Gen: Denies fevers, night sweats, rigors, fatigue, malaise, weight loss/gain ENT: Denies congestion, throat pain, hearing loss Eyes: Denies acute visual changes CV: Denies CP, palpitations Pulmonary: Denies SOB, cough, wheezing GI: Denies N/V, diarrhea, constipation Neuro: Acute L numbness, weakness, involuntary movement of R arm, head Musculoskeletal: Denies joint pain, inflammation Endocrine: Denies polydipsia, polyuria Skin: Denies acute rashes or ulcers Physical Exam Vital Signs (Past 24 Hours): Last Vital Signs Temp 36.8 C 12/15/18 11:02 Pulse 101 H 12/15/18 15:11 Resp 24 12/15/18 15:00 BP 133/79 12/15/18 15:00 Pulse Ox 96 12/15/18 15:11 Physical Exam: General: Average weight, middle-aged F, no distress - she is lethargic although she had been sedated with Ativan - speech is clear and she is fully oriented ENT: No erythema or exudates, no thrush Eyes: MATTHEW, EOMI Head and neck: Normocephalic, atraumatic, No JVD, neck is supple. Chest/heart: Nontender, S1,2, RRR, no murmurs, no gallops Lungs: CTAB, no wheezing or crackles Abdomen: Nontender, nondistended, BS+ Neuro: AAO x 3, speech is clear - MATTHEW, EOMI, + L weakness - pronator drift, numbness to light touch - coordination impaired due to weakness - could not sit herself up - unclear if this was the effect of the Ativan Musculoskeletal: No joint inflammation, muscle tenderness, FROM Skin: No acute rashes or ulcers Extremities: No clubbing, cyanosis, edema
--- NOTE | 2018-12-15 15:56 | Emergency Department Note ---
Entered by Mary Joseph acting as a scribe for History of Present Illness General Chief complaint: Neuro Symptoms/Deficit Stated complaint: LEGS LEFT SIDE GOING NUMB Time Seen by Provider: 12/15/18 11:09 Source: patient and family Mode of arrival: ambulatory Limitations: altered mental status History of Present Illness Onset (ago): day(s) (today) Location: head (stroke symptoms) Pain Consistency: + constant Quality: + other (Per , the patient complains of feeling tingly.) Associated symptoms: + other (The patient complains of left leg numbness. ) Treatments prior to arrival: aspirin ( Per , the patient took three 5mg baby aspirin this morning after the symptoms started. ) The HPI is limited secondary to patient altered mental status. The patient is a 63 year old female with a history of migraines who presents to the ED with complaints of an episode of altered mental status that onset today at approximately 10:45 AM. Per , the patient complains of feeling tingly. The patient complains of left leg numbness. Per , the patient took three 5mg baby aspirin this morning after the symptoms started. The states she became incoherent not making any sense when speaking, started shaking uncontrollably, her left side of face when read, and she was unable to move her left arm. Home Medications Home Medications Medication Instructions Recorded Confirmed Type cholecalciferol (vitamin D3) 5,000 unit PO DAILY 12/15/18 12/15/18 History [Vitamin D3] multivitamin 1 tab PO DAILY 12/15/18 12/15/18 History omega 2-rvk-nfq-fish oil [Fish Oil] 1 cap PO DAILY 12/15/18 12/15/18 History peg [id number] [Dry 1 drp OPHTHALMIC (EYE) BID PRN 12/15/18 12/15/18 History Eye Relief] Allergies Allergy/AdvReac Type Severity Reaction Status Date / Time Sulfa (Sulfonamide Allergy Severe STOPPED Verified 12/15/18 11:56 Antibiotics) BREATHING Past Med/Surg History Medical History History of stroke Hx of migraines No pertinent family history No pertinent past medical history Surgical History No pertinent past surgical history Family History Other No pertinent family history Social History Feels Safe at Home: Yes Smoking Status: Unknown if ever smoked Hx Substance Use: No Review of Systems See HPI for pertinent positives & negatives. and A total of 10 systems reviewed and were otherwise negative Physical Exam Vital Signs Vital Signs - 24 hr 12/15/18 11:02 12/15/18 11:07 12/15/18 11:10 Temperature 36.8 C Temperature Source Oral Sepsis Recent Fever Within 48 Hours No Sepsis New/Unexplained Change in Mental Status No Sepsis Action Taken by Nursing No Action Required Pulse Rate 115 H 106 H 104 H Pulse Rate from SpO2 Sensor 106 H 104 H Respiratory Rate 20 Respiratory Effort / Characteristics Non-Labored Respiratory Depth Normal Blood Pressure 189/86 H 184/99 H Blood Pressure Mean 120 127 Pulse Oximetry 97 97 97 Oxygen Delivery Method Room Air 12/15/18 11:29 12/15/18 11:30 12/15/18 11:34 Temperature Temperature Source Sepsis Recent Fever Within 48 Hours Sepsis New/Unexplained Change in Mental Status Sepsis Action Taken by Nursing Pulse Rate 108 H 119 H Pulse Rate from SpO2 Sensor 109 H 111 H 113 H Respiratory Rate Respiratory Effort / Characteristics Respiratory Depth Blood Pressure 170/62 H Blood Pressure Mean 98 Pulse Oximetry 98 98 98 Oxygen Delivery Method 12/15/18 11:40 12/15/18 11:54 12/15/18 12:00 Temperature Temperature Source Sepsis Recent Fever Within 48 Hours Sepsis New/Unexplained Change in Mental Status Sepsis Action Taken by Nursing Pulse Rate 99 H 93 H 89 Pulse Rate from SpO2 Sensor 98 H 94 H 90 Respiratory Rate 14 17 Respiratory Effort / Characteristics Respiratory Depth Blood Pressure Blood Pressure Mean Pulse Oximetry 95 96 95 Oxygen Delivery Method 12/15/18 12:10 12/15/18 12:20 12/15/18 12:29 Temperature Temperature Source Sepsis Recent Fever Within 48 Hours Sepsis New/Unexplained Change in Mental Status Sepsis Action Taken by Nursing Pulse Rate 95 H 94 H 93 H Pulse Rate from SpO2 Sensor 95 H 96 H 93 H Respiratory Rate 13 15 21 Respiratory Effort / Characteristics Respiratory Depth Blood Pressure 131/76 Blood Pressure Mean 94 Pulse Oximetry 97 98 92 Oxygen Delivery Method 12/15/18 12:30 12/15/18 12:40 12/15/18 12:50 Temperature Temperature Source Sepsis Recent Fever Within 48 Hours Sepsis New/Unexplained Change in Mental Status Sepsis Action Taken by Nursing Pulse Rate 92 H 91 H 86 Pulse Rate from SpO2 Sensor 92 H 91 H 86 Respiratory Rate 19 19 17 Respiratory Effort / Characteristics Respiratory Depth Blood Pressure 123/76 Blood Pressure Mean 91 Pulse Oximetry 92 92 92 Oxygen Delivery Method 12/15/18 13:00 12/15/18 13:10 12/15/18 13:20 Temperature Temperature Source Sepsis Recent Fever Within 48 Hours Sepsis New/Unexplained Change in Mental Status Sepsis Action Taken by Nursing Pulse Rate 91 H 86 88 Pulse Rate from SpO2 Sensor 90 86 88 Respiratory Rate 16 17 21 Respiratory Effort / Characteristics Respiratory Depth Blood Pressure 131/80 Blood Pressure Mean 97 Pulse Oximetry 96 93 93 Oxygen Delivery Method 12/15/18 13:30 12/15/18 13:40 12/15/18 13:50 Temperature Temperature Source Sepsis Recent Fever Within 48 Hours Sepsis New/Unexplained Change in Mental Status Sepsis Action Taken by Nursing Pulse Rate 87 95 H 86 Pulse Rate from SpO2 Sensor 87 94 H 87 Respiratory Rate 18 18 18 Respiratory Effort / Characteristics Respiratory Depth Blood Pressure 128/72 Blood Pressure Mean 90 Pulse Oximetry 95 94 96 Oxygen Delivery Method 12/15/18 14:00 12/15/18 14:10 12/15/18 14:20 Temperature Temperature Source Sepsis Recent Fever Within 48 Hours Sepsis New/Unexplained Change in Mental Status Sepsis Action Taken by Nursing Pulse Rate 93 H 90 95 H Pulse Rate from SpO2 Sensor 92 H 90 97 H Respiratory Rate 24 18 17 Respiratory Effort / Characteristics Respiratory Depth Blood Pressure 129/72 Blood Pressure Mean 91 Pulse Oximetry 94 95 93 Oxygen Delivery Method 12/15/18 14:30 12/15/18 14:40 12/15/18 14:50 Temperature Temperature Source Sepsis Recent Fever Within 48 Hours Sepsis New/Unexplained Change in Mental Status Sepsis Action Taken by Nursing Pulse Rate 92 H 105 H 90 Pulse Rate from SpO2 Sensor 92 H 101 H 91 H Respiratory Rate 17 22 21 Respiratory Effort / Characteristics Respiratory Depth Blood Pressure 129/84 Blood Pressure Mean 99 Pulse Oximetry 96 96 94 Oxygen Delivery Method 12/15/18 15:00 12/15/18 15:11 Temperature Temperature Source Sepsis Recent Fever Within 48 Hours Sepsis New/Unexplained Change in Mental Status Sepsis Action Taken by Nursing Pulse Rate 98 H 101 H Pulse Rate from SpO2 Sensor 100 H 101 H Respiratory Rate 24 Respiratory Effort / Characteristics Respiratory Depth Blood Pressure 133/79 Blood Pressure Mean 97 Pulse Oximetry 96 96 Oxygen Delivery Method Room Air Room Air GENERAL: Screaming uncontrollably, flailing in bed. HENT: Exam performed. Head: Normocephalic and atraumatic. EYES: Conjunctivae and EOM are normal. Pupils are equal, round, and reactive to light. NECK: Normal range of motion. Neck supple. No JVD present. No spinous process tenderness present. No carotid bruit present. No rigidity. No tracheal deviation and normal range of motion present. No Brudzinski's sign and no Kernig's sign noted. CV: Tachycardic rate, regular rhythm, normal heart sounds and intact distal pulses. There is no peripheral edema. Palpable radial pulses bue. PULM/CHEST: Effort normal and breath sounds normal. No respiratory distress. No stridor. She has no wheezes. She has no rales. Chest Wall: She exhibits no tenderness. ABD: The abdomen is soft. Bowel sounds are normal. No pain on palpation of the abdomen. NEURO: She had a stroke scale of 3 left arm. SKIN: Skin is warm and dry. She is not diaphoretic. No rash. Course 1106: Past medical records reviewed. The patient was evaluated in room A01, and a complete history and physical examination were performed.The patient was immediately seen. She has weakness in her left upper extremity. Given the weakness of the left upper extremity, code stroke was called. 1115: the patient stopped has stopped shaking and flailing in the bed. Patient started speaking and asking question appropriately.I spoke to the patients . He states that the patient has been under a lot of stress recently because of a planned move to [place] and a grandchild that is in NICU. 1128: I was called to CT. The patient was actively screaming and flailing her arms in CT. A CT was able to be obtained. A CTA was not able to be obtained. She was given 1 mg of Ativan to calm down. Stroke team was called and evaluated her at bedside. The patient is answering questions appropriately. 1133: The patient is having jerking motions, possibly appearing like a seizure. 1 mg of IV Ativan was ordered. Code stroke was canceled given the seizure-like symptoms. 1145: The patient was moved to . 1157: Vital signs stable. Labs within normal limits. CT of the head within normal limits. After receiving the Ativan IV, the patients shaking has improved. She is now alert, oriented, and answering questions appropriately. Differentials for this patient include possible psychiatric conditions such as psychosis, acute stress reaction, as well as neurological reaction such as seizure. It is difficult to ascertain if the patient's symptoms were truly due to seizure, however it should be noted that her symptoms resolved after Ativan IV. Patient has been under a lot of stress lately due to a planned move to [place] as well as a grandchild who is in the NICU, the at bedside states this is been causing the patient great deal amount of mental stress. Will discuss with neuro. 1211: I reviewed the patient's case with Dr. Willingham- Neurologist. He thinks that this is a functional headache that could be due to her migraines. He notes that it sounds less like a seizure. He recommends against loading with antiepilep tics. Family does not feel comfortable taking the patient home at this time. Patient will be admitted to the hospitalist service for neuro eval, MRI, and EEG. Dr. Juanita [facility] hospitalist service was notified about the admission. Consultations Consultation #1: 1211: I reviewed the patient's case with Dr. Willingham- Neurologist . He thinks that this is a functional headache that could be due to her migraines. He notes that it sounds less like a seizure. He recommends against loading with antiepileptics. Time: 15:32 Administered Medications Discontinued Medications Lorazepam (Ativan) Confirm Administered Dose 2 mg .ROUTE .STK-MED ONE Stop: 12/15/18 11:09 Last Admin: 12/15/18 11:20 Dose: 1 mg Documented by: [id number] Lorazepam (Ativan) Confirm Administered Dose 2 mg .ROUTE .STK-MED ONE Stop: 12/15/18 11:33 Last Admin: 12/15/18 11:37 Dose: 1 mg Documented by: [id number] Medical Decision Making Medical Records Attestation: I reviewed the patient's medical records. Home Medications Current Medication List: was personally reviewed by me Laboratory Data Attestation: I reviewed the patient's lab results. Result diagrams: 12/15/18 11:10 12/15/18 11:10 Lab Results 12/15/18 12/15/18 12/15/18 Range/Units 11:10 11:10 11:10 WBC 11.42 H (4.8-10.8) K/uL RBC 5.87 H (4.2-5.4) M/uL Hgb 12.4 (12.0-16.0) g/dL POC Hgb (12.0-16.0) g/dl Hct 38.3 (37-47) % POC Hct (37-47) % MCV 65.2 L (80-100) fL MCH 21.1 L (25-34) pg MCHC 32.4 (32-36) g/dL RDW Std Deviation 37.3 (36.4-46.3) fL RDW Coeff of Christina 16.3 H (11.5-14.5) % Plt Count 262 (130-400) K/uL Immature Gran % (Auto) 0.3 % Neut % (Auto) 65.5 % Lymph % (Auto) 24.6 % [place] % (Auto) 7.8 % Eos % (Auto) 1.4 % Baso % (Auto) 0.4 % Immature Gran # (Auto) 0.03 H (0.00-0.02) K/uL Neut # (Auto) 7.49 H (1.4-6.5) K/uL Lymph # (Auto) 2.81 (1.2-3.4) K/uL [place] # (Auto) 0.89 H (0.11-0.59) K/uL Eos # (Auto) 0.16 (0-0.5) K/uL Baso # (Auto) 0.04 (0-0.2) K/uL Microcytosis Present Tear Drop Cells 1+ Ovalocytes 1+ PT 10.4 (9.0-12.0) Seconds INR 1.0 (0.9-1.1) APTT 28.9 (21.0-31.0) Seconds PTT Ratio 1.1 POC Sodium (135-144) mEq/L Sodium 137 (136-145) mmol/L POC Potassium (3.3-5.0) mEq/L Potassium 3.5 (3.5-5.1) mmol/L POC Chloride (101-112) mEq/L Chloride 104 (98-107) mmol/L Carbon Dioxide 26 (21-32) mmol/L POC Total CO2 (24-31) mEq/l Anion Gap 7.0 (3-11) POC Anion Gap (16-25) mmol/L POC BUN (7-18) mg/dl BUN 14 (7-18) mg/dl Creatinine 0.90 (0.6-1.2) mg/dl POC Creatinine (0.6-1.3) mg/dl Est Cr Clr Drug Dosing Not Reportable Est GFR ( Amer) 80.0 Est GFR (Non-Af Amer) 69.0 BUN/Creatinine Ratio 15.9 (10-20) Glucose 106 H (70-99) mg/dl POC Glucose (70-99) POC Glucose (other) (70-99) mg/dl Calcium 9.9 (8.5-10.1) mg/dl POC Ioniz Calcium [place] (1.12-1.32) mmol/l Magnesium 1.9 (1.8-2.4) mg/dl Total Bilirubin 0.9 (0.2-1) mg/dl AST 17 (15-37) U/L ALT 26 (12-78) U/L Alkaline Phosphatase 108 (45-117) U/L Troponin I < 0.015 (0-0.045) ng/ml Total Protein 8.3 H (6.4-8.2) gm/dl Albumin 4.1 (3.4-5.0) gm/dl Globulin 4.2 H (2.5-4.0) gm/dl Albumin/Globulin Ratio 1.0 (0.9-2) Urine Color Urine Appearance (Clear) Urine pH (4.5-7.5) Ur Specific [place] (1.000-1.030) Urine Protein (Negative) Urine Glucose (UA) (Negative) Urine Ketones (Negative) Urine Blood (Negative) Urine Nitrite (Negative) Urine Bilirubin (Negative) Urine Urobilinogen (Negative) Ur Leukocyte Esterase (Negative) 12/15/18 12/15/18 12/15/18 Range/Units 11:10 11:17 12:25 WBC (4.8-10.8) K/uL RBC (4.2-5.4) M/uL Hgb (12.0-16.0) g/dL POC Hgb 13.6 (12.0-16.0) g/dl Hct (37-47) % POC Hct 40 (37-47) % MCV (80-100) fL MCH (25-34) pg MCHC (32-36) g/dL RDW Std Deviation (36.4-46.3) fL RDW Coeff of Christina (11.5-14.5) % Plt Count (130-400) K/uL Immature Gran % (Auto) % Neut % (Auto) % Lymph % (Auto) % [place] % (Auto) % Eos % (Auto) % Baso % (Auto) % Immature Gran # (Auto) (0.00-0.02) K/uL Neut # (Auto) (1.4-6.5) K/uL Lymph # (Auto) (1.2-3.4) K/uL [place] # (Auto) (0.11-0.59) K/uL Eos # (Auto) (0-0.5) K/uL Baso # (Auto) (0-0.2) K/uL Microcytosis Tear Drop Cells Ovalocytes PT (9.0-12.0) Seconds INR (0.9-1.1) APTT (21.0-31.0) Seconds PTT Ratio POC Sodium 139 (135-144) mEq/L Sodium (136-145) mmol/L POC Potassium 3.6 (3.3-5.0) mEq/L Potassium (3.5-5.1) mmol/L POC Chloride 101 (101-112) mEq/L Chloride (98-107) mmol/L Carbon Dioxide (21-32) mmol/L POC Total CO2 24 (24-31) mEq/l Anion Gap (3-11) POC Anion Gap 18.0 (16-25) mmol/L POC BUN 14 (7-18) mg/dl BUN (7-18) mg/dl Creatinine (0.6-1.2) mg/dl POC Creatinine 0.8 (0.6-1.3) mg/dl Est Cr Clr Drug Dosing Est GFR ( Amer) Est GFR (Non-Af Amer) BUN/Creatinine Ratio (10-20) Glucose (70-99) mg/dl POC Glucose 130 H (70-99) POC Glucose (other) 112 H (70-99) mg/dl Calcium (8.5-10.1) mg/dl POC Ioniz Calcium [place] 1.23 (1.12-1.32) mmol/l Magnesium (1.8-2.4) mg/dl Total Bilirubin (0.2-1) mg/dl AST (15-37) U/L ALT (12-78) U/L Alkaline Phosphatase (45-117) U/L Troponin I (0-0.045) ng/ml Total Protein (6.4-8.2) gm/dl Albumin (3.4-5.0) gm/dl Globulin (2.5-4.0) gm/dl Albumin/Globulin Ratio (0.9-2) Urine Color Yellow Urine Appearance Clear (Clear) Urine pH 7.5 (4.5-7.5) Ur Specific [place] 1.016 (1.000-1.030) Urine Protein Negative (Negative) Urine Glucose (UA) Negative (Negative) Urine Ketones Negative (Negative) Urine Blood Negative (Negative) Urine Nitrite Negative (Negative) Urine Bilirubin Negative (Negative) Urine Urobilinogen Negative (Negative) Ur Leukocyte Esterase Negative (Negative) Imaging Data Radiologist's Impression: Radiology results as stated below per my review and the radiologist's interpretation: XR chest 1V portable CLINICAL HISTORY: 63 years-old Female presenting with ams. TECHNIQUE: Portable upright AP view of the chest was obtained. COMPARISON: None. FINDINGS: Cardiomediastinal silhouette normal. Mildly low lung volumes. No focal opacity. No large effusion or pneumothorax. Degenerative changes of the thoracic spine. Upper abdomen normal. IMPRESSION: 1. Mildly low lung volumes. No acute cardiopulmonary disease. Electronically signed by: German Pretty M.D. 12/15/2018 12:13 PM Dictated: 12/15/[address] head/brain wo con CLINICAL HISTORY: Stroke evaluation COMPARISON STUDY: MRI dated 08/13/2013 TECHNIQUE: Axial CT of the brain is performed from the vertex to the skull base. IV contrast was not administered for this examination. A dose lowering technique was utilized adhering to the principles of ALARA. CT DOSE: FINDINGS: No intra or extra-axial mass lesions are visualized. There is no CT evidence of acute cortical infarction. There is no evidence of midline shift. There is no acute hemorrhage. No calvarial fractures are visualized. There is no evidence of pathologic ventricular dilatation. There is no evidence of acute sinusitis IMPRESSION: No acute intracranial findings Electronically signed by: Alexandro Killian M.D. 12/15/2018 11:25 AM Dictated: 12/15/18 1123 Transcribed: 12/15/18 1123 ECG Data Attestation: I personally reviewed and interpreted this ECG as follows: Indication: other (neuro symptoms) Rate (beats per minute): 88 Rhythm: sinus rhythm Findings: + other (SD, QRS, QTC within normal limits. ); no ST depression and no ST elevation Blood Pressure Blood Pressure Findings: Normal blood pressure MDM Narrative 1106: Past medical records reviewed. The patient was evaluated in room A01, and a complete history and physical examination were performed.The patient was immediately seen. She has weakness in her left upper extremity. Given the weakness of the left upper extremity, code stroke was called. 1115: the patient stopped has stopped shaking and flailing in the bed. Patient started speaking and asking question appropriately.I spoke to the patients . He states that the patient has been under a lot of stress recently because of a planned move to [place] and a grandchild that is in NICU. 1128: I was called to CT. The patient was actively screaming and flailing her arms in CT. A CT was able to be obtained. A CTA was not able to be obtained. She was given 1 mg of Ativan to calm down. Stroke team was called and evaluated her at bedside. The patient is answering questions appropriately. 1133: The patient is having jerking motions, possibly appearing like a seizure. 1 mg of IV Ativan was ordered. Code stroke was canceled given the seizure-like symptoms. 1145: The patient was moved to C4. 1157: Vital signs stable. Labs within normal limits. CT of the head within normal limits. After receiving the Ativan IV, the patients shaking has improved. She is now alert, oriented, and answering questions appropriately. Differentials for this patient include possible psychiatric conditions such as psychosis, acute stress reaction, as well as neurological reaction such as seizure. It is difficult to ascertain if the patient's symptoms were truly due to seizure, however it should be noted that her symptoms resolved after Ativan IV. Patient has been under a lot of stress lately due to a planned move to [place] as well as a grandchild who is in the NICU, the at bedside s tates this is been causing the patient great deal amount of mental stress. Will discuss with neuro. 1211: I reviewed the patient's case with Dr. Willingham- Neurologist. He thinks that this is a functional headache that could be due to her migraines. He notes that it sounds less like a seizure. He recommends against loading with antiepileptics. Family does not feel comfortable taking the patient home at this time. Patient will be admitted to the hospitalist service for neuro eval, MRI, and EEG. Dr. Grant [facility] hospitalist service was notified about the admission. Impression & Plan Seizure Discharge Plan Visit Data Chief Complaint: Neuro Symptoms/Deficit Stated Complaint: LEGS LEFT SIDE GOING NUMB ED Provider: J Carlos Levine Discharge Problem: Seizure Patient Disposition: Being Evaluated by Hospitalist Forms Stand Alone Forms: My [facility] Prescriptions Prescriptions: No Action multivitamin Tablet 1 tab PO DAILY RF: 0 Dry Eye Relief 1-0.2-0.2 % Drops 1 drp OPHTHALMIC (EYE) BID PRN (Reason: Dry Eye(S)) RF: 0 cholecalciferol (vitamin D3) [Vitamin D3] 5,000 unit Tablet 5,000 unit PO DAILY RF: 0 omega 7-frg-rff-fish oil [Fish Oil] 1,000 mg (120 mg-180 mg) Capsule 1 cap PO DAILY RF: 0 Referrals Referrals: Kedar Edgar [Primary Care Provider] - The scribe's documentation has been prepared under my direction and personally reviewed by me in its entirety. I confirm that the note above accurately reflects all work, treatment, procedures, and medical decision making performed by me.
[2018-12-15] MEDS ORDERED: ACETAMINOPHEN 325 MG TAB ONE (16:40)
[2018-12-15] MEDS ORDERED: LORazepam 2 MG/4 ML VIAL IV PRN (19:02)
[2018-12-15] MEDS ORDERED: ALUMINUM/MAGNESIUM SUSP 30 ML UDC PO PRN (19:02)
[2018-12-15] MEDS ORDERED: POLYETHYLENE (MIRALAX) 17 GM PACK PO PRN (19:02)
[2018-12-15] MEDS ORDERED: ONDANSETRON INJ 2 MG/ML 2 ML VIAL IV PRN (19:02)
[2018-12-15] MEDS ORDERED: MAGNESIUM HYDROXIDE SUSP 30 ML UDC PO PRN (19:02)
[2018-12-15] MEDS ORDERED: ACETAMINOPHEN 325 MG TAB PO PRN (19:02)
[2018-12-15] MEDS ORDERED: ASPIRIN 81 MG ECTAB PO STA (19:05)
[2018-12-15] MEDS ORDERED: GADOBUTROL 7.5ML VIAL IV PRN (21:03)
--- NOTE | 2018-12-15 21:12 | Magnetic Resonance Report ---
MR brain seizure wo/w con CLINICAL HISTORY: seizure and R weakness mental status change COMPARISON STUDY: 08/13/2013 TECHNIQUE: Utilizing a 1.5 Gwen magnet and dedicated coil, multiplanar, multiecho imaging of the br ain was performed pre and postcontrast administration. IV administration of 8.4 mL of Gadavist contr ast was uneventful. Thin cut coronal T2 imaging was performed according to seizure protocol. FINDINGS: Improved exam compared to the prior study. Small regional focus of increased T2 and diffusi on signal over the right parietal convexity is improved. This Again favors chronic gliosis, possibly on the basis of old posttraumatic change. No new or interval finding is present. The ventricular system is midline. Sella and parasellar regions are unremarkable. Postcontrast images are considered negative for an enhancing lesion. Ventricular system is midline. IMPRESSION: 1. Improved areas of chronic gliosis over the right parietal convexity. 2. No acute process. 3. No abnormal postcontrast enhancement. The above report was generated using voice recognition software. It may contain grammatical, syntax or spelling errors. Electronically signed by: Jovany Flower M.D. 12/15/2018 9:10 PM
[2018-12-15] MEDS: D5NSS + 20MEQ KCL 20 MEQ/1,000 ML BAG IV SCH (21:35)
[2018-12-16] MEDS ORDERED: Nursing to Pharmacy Communication ONE (06:05)
[2018-12-16 07:09] LABS: Basophils # (auto) 0.03 K/uL (0-0.2); Basophils % (auto) 0.5 %; Eosinophils # (auto) 0.04 K/uL (0-0.5); Eosinophils % (auto) 0.6 %; Hemoglobin 10.3 g/dL (12.0-16.0); Immature Granulocytes # (auto) 0.02 K/uL (0.00-0.02); Immature Granulocytes % (auto) 0.3 %; Lymphocytes # (auto) 1.48 K/uL (1.2-3.4); Lymphocytes % (auto) 23.1 %; Mean Corpuscular Hgb Conc 32.2 g/dL (32-36); Mean Corpuscular Volume 64.4 fL (80-100); Monocytes # (auto) 1.01 K/uL (0.11-0.59); Monocytes % (auto) 15.7 %; Neutrophils # (auto) 3.84 K/uL (1.4-6.5); Neutrophils % (auto) 59.8 %; Platelet Count 218 K/uL (130-400); RDW Coefficient of Variation 16.2 % (11.5-14.5); RDW Standard Deviation 37.3 fL (36.4-46.3); Red Blood Count 4.97 M/uL (4.2-5.4); White Blood Count 6.42 K/uL (4.8-10.8)
[2018-12-16 07:40] LABS: BUN Creatinine Ratio 11.4 (10-20); Calcium 8.9 mg/dl (8.5-10.1); Creatinine Clr Calc Pharmacy 60.3 ml/min; Est GFR (African American) 90.9; Est GFR (Non-African American) 78.4; Magnesium 2.1 mg/dl (1.8-2.4); Potassium 3.9 mmol/L (3.5-5.1)
[2018-12-16 07:56] LABS: Anisocytosis Present; Basophilic Stippling 2+; Microcytosis Present; Polychromasia 1+; Schistocytes Occasional
--- NOTE | 2018-12-16 08:32 | Neurology Consultation ---
Date of Consultation December 16, 2018 Assessment & Plan (1) Seizure: After further review of this patient's history and brain MRI findings I suspect she experienced a focal sensorimotor seizure with secondary generalization. Her initial symptoms seem consistent with a jacksonian march. It sounds like she then experienced some secondary generalization with some associated versive type head movements and confusion. I suspect a right hemispheric seizure focus in light of her MRI findings which reveal an area of chronic cortical gliosis affecting the parietal lobe. At this point, I would recommend treatment with an anticonvulsant. I would start with Keppra 500 mg twice daily. I agree with the EEG as ordered. Continue with seizure precautions. It would probably be best for this patient to remain in the hospital for at least another night to ensure clinical stability. History of Present Illness Reason for Consultation: seizure like activity Requesting Physician: Thai Grant MD Attending Physician: Thai Grant MD History of Present Illness The patient is a 63-year old female with a chief complaint of tingling and weakness of the left upper extremity that began acutely yesterday morning at around 10:45 AM. She recalls a feeling of tingling affecting the fingertips of the left hand. This abnormal sensation rapidly spread proximally, up the left arm towards the neck and left side of the face. She was also unable to move the left upper extremity at that time as well. Her brought her to the emergency department. He observed to the left side of her face appeared flushed. She also seemed to be confused. While in the emergency department she began to exhibit more generalized shaking, screaming, and flailing of her arms. Her head apparently twisted to the side as well for about 1 minute. She was treated with Lorazepam. There was no tongue bite or incontinence. The patient does not have any residual weakness or sensory loss this morning. She does complain of a low-grade headache. The patient does not have a known history of seizure disorder although her history is notable for migraines. She also has a history of a chronic right parietal convexity stroke that was originally diagnosed many years ago while she was living in [place]. The reason for the stroke is not entirely clear. She does not take an anticoagulant or other blood thinners. Family history no known family history of epilepsy or stroke. Allergies Allergy/AdvReac Type Severity Reaction Status Date / Time Sulfa (Sulfonamide Allergy Severe STOPPED Verified 12/15/18 11:56 Antibiotics) BREATHING Home Medications Home Medications Medication Instructions Recorded Confirmed Type cholecalciferol (vitamin D3) 5,000 unit PO DAILY 12/15/18 12/15/18 History [Vitamin D3] multivitamin 1 tab PO DAILY 12/15/18 12/15/18 History omega 6-cec-yhz-fish oil [Fish Oil] 1 cap PO DAILY 12/15/18 12/15/18 History peg [id number] [Dry 1 drp OPHTHALMIC (EYE) BID PRN 12/15/18 12/15/18 History Eye Relief] Patient History Medical History History of stroke Hx of migraines No pertinent family history No pertinent past medical history Surgical History No pertinent past surgical history Family History Other No pertinent family history Social History Communication Ability: Effective Dispatch Supervisor Required: No Beliefs That Will Affect Care: None Current Living Situation: Spouse Other Information That Helps Us Care for You: No Feels Safe at Home: Yes Safety Concerns: Feels Safe At This Time Smoking Status: Never smoker Hx Alcohol Use: No Hx Substance Use: No Review of Systems Constitutional: no fever and no chills Eyes: no blind spots and no diplopia Ear, Nose, Mouth, Throat: no hearing loss and no dizziness Respiratory: no cough and no dyspnea Cardiovascular: no chest pain and no palpitations Gastrointestinal: no nausea and no vomiting Genitourinary (Female): no urinary incontinence Musculoskeletal: no myalgia Integumentary: no rash and no lesions Neurologic: as per Subjective / HPI Patient does endorse a history of significant psychosocial stressors related to [place]. Hematologic / Lymphatic: no easy bleeding and no easy bruising Physical Exam Vital Signs (Past 24 Hours): Last Vital Signs Temp 38.4 C H 12/16/18 06:37 Pulse 87 12/16/18 06:37 Resp 20 12/16/18 06:37 BP 120/73 12/16/18 06:37 Pulse Ox 95 12/16/18 06:37 Physical Exam: The patient is a well-developed, well-nourished female. She is lying comfortably in bed. Affect is somewhat flat and she is slightly inattentive. She is alert and fully oriented. Recent and remote memory intact. Concentration slightly impaired. Patient is able to name objects and repeat phrases although her speech is somewhat slow. Patient exhibits an age- appropriate fund of knowledge in terms of vocabulary. She gets very poor eye contact and does not really speak very much, at least in a spontaneous fashion. She does answer questions appropriately. Visual cisneros full to confrontation. Visual acuity normal. Pupils equal round react to light and accommodation. Eye movements normal. There is no nystagmus or gaze preference. Facial sensation intact. There is no facial droop or weakness. Hearing intact. Palate elevates to midline. Shoulder shrug intact. Tongue protrudes to midline. There are no lingual lacerations or signs of tongue bite. Sensation intact all modalities in all 4 limbs although there is perhaps slight agraphesthesia with testing of the left hand. She does not extinguish to double simultaneous stimulation. There are no obvious signs of hemisensory neglect. Deep tendon reflexes are normoactive and intact for the arms and legs bilaterally although perhaps slightly reduced for the left arm and leg as compared to the right. Plantar responses downgoing bilaterally. There is no dysdiadochokinesia or dysmetria with finger to nose or heel to storm bilaterally. Ophthalmoscopic examination reveals normal-appearing optic disks and posterior segments. No papilledema or hemorrhages. Carotid pulses normal bilaterally, no bruits to auscultation. Gait and station not tested due to safety concerns. Patient exhibits normal muscle strength and tone for all 4 limbs. There is no atrophy. No abnormal movements observed. Results & Data Laboratory Results Today's labs reviewed. WBC 6.42, hemoglobin 10.3, platelet count 218, sodium 140, potassium 3.9, BUN 9, creatinine 0.81, glucose 103, magnesium 2.1. A total CK and prolactin drawn yesterday were normal. Diagnostic Findings A CT of the head completed yesterday was negative for hemorrhage or acute process. Images and report reviewed. A follow-up brain MRI was negative for acute or subacute process. There is an area of chronic gliosis over the right parietal convexity potentially related to a remote infarct or old trauma. This abnormality was also seen on an MRI done in 2012 and appears less prominent. Images and report reviewed.
[2018-12-16] MEDS: D5NSS + 20MEQ KCL 20 MEQ/1,000 ML BAG IV SCH (09:02)
[2018-12-16] MEDS: ASPIRIN 81 MG ECTAB PO SCH (09:43)
[2018-12-16] MEDS: levETIRAcetam 500 MG TAB PO SCH ×2 (09:43→19:38)
--- NOTE | 2018-12-16 13:24 | Hospitalist Progress Note ---
Date of Service December 16, 2018 Assessment & Plan (1) Seizure: This patient is a 63 y/o F Hx Migraines, CVA related to migraine disorder. The pt had acute L sided numbness. She describes numbness of her L upper and lower extremities, along with flushing of the L side of her face and conjuncti jeanine injection. She was driven to the hospital by her and her numbness and flushing had largely resolved on route. She had developed L sided paralysis however and was unable to lift up her L arm. When the ER attending was in the room conversing with the family, she had sudden onset of R sided arm flailing and head twisting lasting nearly a minute, along with screening. This responded to 2mg of IV Ativan. At no time did she lose consciousness, exhibit incontinence, or bite her tongue. She states that the prior day she had a mild headache, but otherwise has not had recent migraines. She has not previously had similar symptoms and does not have a history of seizures. She is also had upper respiratory infection symptoms and a fever on the day of admission At the time of admission, she has persistent L sided weakness, mostly of the upper extremity and minimal numbness. MRI of the brain shows improved areas of chronic gliosis over the right parietal convexity. Negative for stroke Seen by neurology and strongly suspected that she had Jacksonian march the left side of the body and then converted to most likely a partial complex seizure. EEG here is negative for seizure activity but this does not exclude a seizure Her fever likely lowered her threshold for seizure in the gliosis on the brain from previous trauma versus migraine? Likely puts her at risk for seizure ac tivity. She has never had a seizure in the past. Clinical picture strongly suggest seizure and neurology has started on Keppra 500 mg p.o. twice daily She is quite drowsy from the medication-if persists, would consider discontinuing Keppra and transitioning to a different antiepileptic drug -We will give lorazepam IV as needed -I discussed the case in depth with neurology-Dr. Willingham is also in agreement that she should not be driving for at least 6 months until she remains seizure- free -I will submit the form to the [facility] that is necessary for reporting -Continue observation overnight and possibly discharged home tomorrow if improved -Continue seizure precautions (2) History of stroke: Thought to be secondary to migraines? This is by history but there is no stroke seen on MRI. Unclear if the area of gliosis represents an area of old stroke? -Is not on any specific treatment for this -Continue aspirin 81 mg daily (3) Hx of migraines: Is not on any specific treatment for this (4) Fever: With a fever on the day of admission and again today -Blood cultures no growth to date With upper respiratory infection symptoms and with similar illness- likely a viral syndrome Flu swab PCR here is negative -Supportive care will be given Acetaminophen for fever as needed (5) DVT prophylaxis: SCDs Disposition-continue observation overnight and weekly discharged home tomorrow Subjective Patient feeling very drowsy today. I had a 45-minute discussion with the patient, her , and later on the phone with neurology today all about her condition and prognosis. Patient reports no further headache today. Still has a little bit of numbness in the left pinky finger. Denies chest pain or shortness of breath, no nausea or vomiting. She is eating well. She did have a fever both yesterday and today. She and her report that she started having a runny nose and sneezing with upper respiratory symptoms the day prior to admission. The himself also has had cold symptoms. She now denies any sinus congestion, no facial pain, no sore throat, has a mild cough. I later came back and reviewed the results of the EEG and the evening. The patient and her were a bit distraught at the fact that she will be recommended to not drive for 6 months as she recently was about to change jobs and she accepted her "dream job" and was going to move to [place] in the very near future Telemetry with normal sinus rhythm, rates in the 80s-90s Review of Systems All systems reviewed & are unremarkable except as noted in HPI & below Physical Exam Vital Signs (Past 24 Hours): Last Vital Signs Temp 37.3 C 12/16/18 11:43 Pulse 82 12/16/18 11:43 Resp 16 12/16/18 11:43 BP 123/66 12/16/18 11:43 Pulse Ox 95 12/16/18 11:43 Constitutional: WD/WN, vitals as above Eyes: PERRL, conjunctivae normal, anicteric sclerae ENMT: external ear and nose normal, oropharynx normal Neck: trachea midline, no thyromegaly Respiratory: normal respiratory effort, lungs clear to auscultation Cardiovascular: RRR, no murmur, no edema Gastrointestinal (Abdomen): normal bowel sounds, soft, nontender, no hepatosplenomegaly Musculoskeletal: Extremities: extremities normal to inspection; no cyanosis and no clubbing Skin: no rashes, warm and dry Neurologic: CN's II-XI intact bilaterally, moves all extremities and awake (But drowsy); no focal motor deficits (Strength 5 out of 5 throughout upper and lower extremities, sensation intact light touch throughout upper and lower extremities) Psychiatric: Orientation: alert and oriented x 3 Eye Contact: + fair eye contact Affect: + flat affect Results & Data Laboratory Results 12/16/18 12/16/18 12/16/18 Range/Units 13:30 06:36 06:36 WBC 6.42 (4.8-10.8) K/uL RBC 4.97 (4.2-5.4) M/uL Hgb 10.3 L (12.0-16.0) g/dL Hct 32.0 L (37-47) % MCV 64.4 L (80-100) fL MCH 20.7 L (25-34) pg MCHC 32.2 (32-36) g/dL RDW Std Deviation 37.3 (36.4-46.3) fL RDW Coeff of Christina 16.2 H (11.5-14.5) % Plt Count 218 (130-400) K/uL Immature Gran % (Auto) 0.3 % Neut % (Auto) 59.8 % Lymph % (Auto) 23.1 % [place] % (Auto) 15.7 % Eos % (Auto) 0.6 % Baso % (Auto) 0.5 % Immature Gran # (Auto) 0.02 (0.00-0.02) K/uL Neut # (Auto) 3.84 (1.4-6.5) K/uL Lymph # (Auto) 1.48 (1.2-3.4) K/uL [place] # (Auto) 1.01 H (0.11-0.59) K/uL Eos # (Auto) 0.04 (0-0.5) K/uL Baso # (Auto) 0.03 (0-0.2) K/uL Polychromasia 1+ Basophilic Stippling 2+ Anisocytosis Present Microcytosis Present Schistocytes Occasional Sodium 140 (136-145) mmol/L Potassium 3.9 (3.5-5.1) mmol/L Chloride 110 H (98-107) mmol/L Carbon Dioxide 24 (21-32) mmol/L Anion Gap 6.0 (3-11) BUN 9 D (7-18) mg/dl Creatinine 0.81 (0.6-1.2) mg/dl Est Cr Clr Drug Dosing 60.3 ml/min Est GFR ( Amer) 90.9 Est GFR (Non-Af Amer) 78.4 BUN/Creatinine Ratio 11.4 (10-20) Glucose 103 H (70-99) mg/dl Calcium 8.9 (8.5-10.1) mg/dl Magnesium 2.1 (1.8-2.4) mg/dl Hepatitis C Ab Screen (Neg) Influenza Type A (PCR) Neg for Influ A (Neg) Influenza Type B (PCR) Neg for Influ B (Neg) 12/16/18 Range/Units 06:36 WBC (4.8-10.8) K/uL RBC (4.2-5.4) M/uL Hgb (12.0-16.0) g/dL Hct (37-47) % MCV (80-100) fL MCH (25-34) pg MCHC (32-36) g/dL RDW Std Deviation (36.4-46.3) fL RDW Coeff of Christina (11.5-14.5) % Plt Count (130-400) K/uL Immature Gran % (Auto) % Neut % (Auto) % Lymph % (Auto) % King[place] % (Auto) % Eos % (Auto) % Baso % (Auto) % Immature Gran # (Auto) (0.00-0.02) K/uL Neut # (Auto) (1.4-6.5) K/uL Lymph # (Auto) (1.2-3.4) K/uL Kingman # (Auto) (0.11-0.59) K/uL Eos # (Auto) (0-0.5) K/uL Baso # (Auto) (0-0.2) K/uL Polychromasia Basophilic Stippling Anisocytosis Microcytosis Schistocytes Sodium (136-145) mmol/L Potassium (3.5-5.1) mmol/L Chloride (98-107) mmol/L Carbon Dioxide (21-32) mmol/L Anion Gap (3-11) BUN (7-18) mg/dl Creatinine (0.6-1.2) mg/dl Est Cr Clr Drug Dosing ml/min Est GFR ( Amer) Est GFR (Non-Af Amer) BUN/Creatinine Ratio (10-20) Glucose (70-99) mg/dl Calcium (8.5-10.1) mg/dl Magnesium (1.8-2.4) mg/dl Hepatitis C Ab Screen Neg (Neg) Influenza Type A (PCR) (Neg) Influenza Type B (PCR) (Neg)
[2018-12-16 14:13] LABS: Influenza A virus by PCR Neg for Influ A (Neg); Influenza B virus by PCR Neg for Influ B (Neg)
--- NOTE | 2018-12-16 14:25 | Procedure Note ---
EEG Procedure Note Date of Service December 16, 2018 Start / End Times Start Time: 11:08A End Time: 11:28A Referring Physician Thai Grant MD History seizure, Amar[place]ovember, left arm, generalized convulsion Home Medication List Home Medications Medication Instructions Recorded Confirmed Type cholecalciferol (vitamin D3) 5,000 unit PO DAILY 12/15/18 12/15/18 History [Vitamin D3] multivitamin 1 tab PO DAILY 12/15/18 12/15/18 History omega 3-mbf-gbt-fish oil [Fish Oil] 1 cap PO DAILY 12/15/18 12/15/18 History peg [id number] [Dry 1 drp OPHTHALMIC (EYE) BID PRN 12/15/18 12/15/18 History Eye Relief] Inpatient Medication List Aspirin (Ecotrin Ectab) 81 mg PO QAM [facility] Stop: 01/15/19 08:59 Last Admin: 12/16/18 09:43 Dose: 81 mg Documented by: [id number] Gadobutrol (Gadavist 7.5ml) 6 ml IV ONCE PRN PRN Reason: Interaction Checking Stop: 12/19/18 21:02 Last Admin: 12/15/18 21:03 Dose: 6 ml Documented by: [id number] Potassium Chloride/Dextrose/Sod Cl (D5nss + 20meq Kcl) 20 meq in 1,000 mls @ 125 mls/hr IV .Q8H [facility] Stop: 12/16/18 15:59 Last Admin: 12/16/18 09:02 Dose: 100 mls/hr Documented by: [id number] Infusion: 12/16/18 09:00 Dose: 0 mls/hr Documented by: [id number] Infusion: 12/16/18 04:18 Dose: 100 mls/hr Documented by: [id number] Admin: 12/15/18 21:35 Dose: 125 mls/hr Documented by: [id number] Levetiracetam (Keppra) 500 mg PO BID [facility] Stop: 01/15/19 09:29 Last Admin: 12/16/18 09:43 Dose: 500 mg Documented by: [id number] Discontinued Medications Acetaminophen (Tylenol) Confirm Administered Dose 650 mg .ROUTE .STK-MED ONE Stop: 12/15/18 16:41 Last Admin: 12/15/18 16:41 Dose: 650 mg Documented by: [id number] Aspirin (Ecotrin Ectab) 81 mg PO NOW STA Stop: 12/15/18 19:06 Last Admin: 12/15/18 21:40 Dose: 81 mg Documented by: [id number] Lorazepam (Ativan) Confirm Administered Dose 2 mg .ROUTE .STK-MED ONE Stop: 12/15/18 11:09 Last Admin: 12/15/18 11:20 Dose: 1 mg Documented by: [id number] Lorazepam (Ativan) Confirm Administered Dose 2 mg .ROUTE .STK-MED ONE Stop: 12/15/18 11:33 Last Admin: 12/15/18 11:37 Dose: 1 mg Documented by: [id number] Description This is a 21 electrode EEG with a single channel dedicated to limited EKG. The electrodes were placed in accordance with the International 10-20 system. There is a posterior dominant rhythm of 10 Hz with normal anterior to posterior organization. The patient was asleep for most of the study, There is admixed generalized theta slowing and intermittent sleep spindles. Photic stimulation w as unremarkable. There is intermittent frontal delta activity, There is no focal or lateralized slowing. There are no epileptiform abnormalities. Interpretation Normal appearing EEG obtained during sleep. Clinical Correlation There are no findings that would suggest a localization related epilepsy or generalized epilepsy syndrome at this time. A normal interictal EEG does not completely exclude a diagnosis of seizure disorder and further clinical correlation is necessary.
[2018-12-16] MEDS ORDERED: ACETAMINOPHEN 325 MG TAB PO STA (19:52)
[2018-12-16] MEDS ORDERED: ACETAMINOPHEN 325 MG TAB PO PRN (19:53)
[2018-12-17] MEDS ORDERED: COUGH DROP (SUGAR FREE) LOZ 24 LOZ/1 BOX BUCCAL ONE (07:44)
--- NOTE | 2018-12-17 08:49 | Neurology Progress Note ---
Date of Service December 17, 2018 Assessment & Plan (1) Seizure: Suspected focal sensorimotor seizure with secondary generalization. Area of chronic ischemic gliosis over the right parietal lobe potential seizure focus. However, EEG completed yesterday was normal. Further, this is this patient's first ever seizure-like episode. Recent and current febrile illness and significant stressors recently related to a pending move likely contributed to this patient's presentation. For the time being, I recommended continuing with Keppra 500 mg twice daily. However, if she does not have any further similar episodes we may be able to taper off this medication. For the time being, I recommended that she not drive. She may bring in additional paperwork from the department of transportation to my office, when she receives it. (2) History of stroke: This patient's brain MRI has revealed an area of chronic gliosis within the cortex/subcortical region of the right parietal lobe. This imaging finding is potentially consistent with a chronic infarct. She does not have a known history of significant head injury. The reason for this imaging finding is not entirely clear although it may have been suggested to the patient previously that it could have been related to an intense migrainous episode, i.e. migrainous stroke. I have recommended a CT angiogram of the head and neck to exclude any significant vascular abnormality. If the angiography reveals significant atherosclerotic disease would recommend starting a daily low-dose aspirin. It would also be reasonable to obtain a transthoracic echocardiogram with bubble study. This study can be completed as an outpatient if necessary. Subjective Follow-up for suspected seizure The patient has not had any further seizure-like episodes since her admission to the hospital. She has not had a recurrence of weakness, sensory loss, or paresthesias. She has not exhibited any confusion. She does complain of a sore throat and cough and has had a fever. Constitutional: + fever Respiratory: + cough Neurologic: as per Subjective / HPI Physical Exam Vital Signs (Past 24 Hours): Last Vital Signs Temp 37.4 C 12/17/18 07:40 Pulse 66 12/17/18 07:40 Resp 16 12/17/18 07:40 BP 115/71 12/17/18 07:40 Pulse Ox 95 12/17/18 07:40 Physical Exam: The patient is alert and fully oriented. Recent and remote memory intact. Attention and concentration normal. Patient exhibits a normal spontaneous speech pattern. Her voice is soft and hoarse sounding. Patient has an age-appropriate fund of knowledge and normal comprehension of vocabulary. Visual cisneros full to confrontation. Visual acuity normal. Pupils equal round reactive to light and accommodation. Eye movements normal. There is no nystagmus. Facial sensation and expression are intact. Tongue and palate midline. Shoulder shrug and hearing intact. There is no pronator drift, ataxia, or dysmetria with finger to nose or heel to storm bilaterally. Strength intact for all 4 limbs. No abnormal movements observed. Results & Data Diagnostic Findings An EEG completed yesterday revealed a normal 10 Hz background rhythm. No epileptiform abnormalities. Normal study.
[2018-12-17] MEDS: levETIRAcetam 500 MG TAB PO SCH (09:09)
[2018-12-17] MEDS: ASPIRIN 81 MG ECTAB PO SCH (09:10)
[2018-12-17] MEDS ORDERED: OPTIRAY 320 125ml IV PRN (13:22)
--- NOTE | 2018-12-17 13:29 | CT Scan Report ---
CT angio neck with con HISTORY: Mental status change h/o right parietal stroke TECHNIQUE: Multiaxial CT angiography of the neck was performed IV contrast: None. All measurem ents were calculated based on NASCET criteria. Maximum intensity projection images were also obtaine d. A dose lowering technique was utilized adhering to the principles of ALARA. COMPARISON STUDY: None. FINDINGS: The aortic arch and proximal great vessels are widely patent. There is no significant sten osis, occlusion, or dissection identified within the bilateral common carotid, internal carotid, or v ertebral arteries. IMPRESSION: No significant stenosis, occlusion, or dissection identified within the carotid or vertebral arteries . The above report was generated using voice recognition software. It may contain grammatical, syntax or spelling errors. Electronically signed by: Jovany Flower M.D. 12/17/2018 1:27 PM
--- NOTE | 2018-12-17 13:31 | CT Scan Report ---
CT angio head wo/w HISTORY: Mental status change h/o right parietal stroke TECHNIQUE: Multiaxial CT angiography of the head was performed IV contrast: None. Maximum in tensity projection images were also obtained. A dose lowering technique was utilized adhering to the principles of ALARA. COMPARISON: None. FINDINGS: There is no mass, hematoma, midline shift, or acute infarct. Visualized intracranial grinder set up operator internal al carotid arteries, distal vertebral arteries, and basilar artery are widely patent. There is no sig nificant stenosis, occlusion, or aneurysm seen within the bilateral ACAs, MCAs, or director of nurses registry. IMPRESSION: No significant stenosis, occlusion, or aneurysm within the [place]. The above report was generated using voice recognition software. It may contain grammatical, syntax or spelling errors. Electronically signed by: Jovany Flower M.D. 12/17/2018 1:29 PM
[2018-12-17] MEDS ORDERED: levETIRAcetam 500 MG TAB PO ONE (14:07)
--- NOTE | 2018-12-17 14:14 | Discharge Summary ---
Date of Service December 17, 2018 Admission HPI Per Admitting Provider 63 y/o F Hx Migraines, CVA related to migraine disorder. The pt had acute L sided numbness at home this AM. She describes numbness of her L upper and lower extremities, along with flushing of the L side of her face and conjunctival injection. She was driven to the hospital by her and her numbness and flushing had largely resolved on route. She had developed L sided paralysis however and was unable to lift up her L arm. When the ER attending was in the room conversing with the family, she had sudden onset of R sided arm flailing and head twisting lasting nearly a minute. This responded to 2mg of IV Ativan. At no time did she loose consciousness, exhibit incontinence or bite her tongue. She states that the prior day she had a mild headache, but otherwise has not had recent migraines. She has not previously had similar symptoms and does not have a history of seizures. At the time of admission, she has persistent L sided weakness, mostly of the upper extremity and minimal numbness. PMH: 1) Migraine disorder - previously required Topamax prophylaxis. 2) CVA - incidental finding on MRI - thought related to migraines rather than any vascular disease. Surgical: denies Social: Hails from [place] in [place]. Does not drink or smoke. She is recently under significant stress as a grandson in [place] is in poor health in a NICU after being born prematurely. Family: States both parents due to "natural causes" Principal Diagnosis Seizure Discharge Exam Constitutional WD/WN, vitals as above Eyes PERRL, conjunctivae normal, anicteric sclerae ENMT external ear and nose normal, oropharynx normal Neck trachea midline, no thyromegaly Respiratory normal respiratory effort, lungs clear to auscultation Cardiovascular RRR, no murmur, no edema Gastrointestinal (Abdomen) normal bowel sounds, soft, nontender, no hepatosplenomegaly Musculoskeletal Extremities: extremities normal to inspection; no cyanosis and no clubbing Skin no rashes, warm and dry Neurologic CN's II-XI intact bilaterally, moves all extremities and awake; no focal motor deficits (Strength 5 out of 5 throughout upper and lower extremities, sensation intact light touch throughout upper and lower extremities) Psychiatric Orientation: alert and oriented x 3 Discharge Data Allergies Allergy/AdvReac Type Severity Reaction Status Date / Time Sulfa (Sulfonamide Allergy Severe STOPPED Verified 12/15/18 11:56 Antibiotics) BREATHING Consultations Neurology Procedures Performed EEG Ordered Studies 12/15/18 11:10 CT head/brain wo con Stat 12/15/18 19:02 MR brain seizure wo/w con Stat 12/17/18 08:59 CT angio head wo/w Routine CT angio neck with con Routine Hospital Course (1) Seizure: This patient is a 63 y/o F Hx Migraines, CVA related to migraine disorder. The pt had acute L sided numbness. She describes numbness of her L upper and lower extremities, along with flushing of the L side of her face and conjunctival injection. She was driven to the hospital by her and her numbness and flushing had largely resolved on route. She had developed L sided paralysis however and was unable to lift up her L arm. When the ER attending was in the room conversing with the family, she had sudden onset of R sided arm flailing and head twisting lasting nearly a minute, along with screaming. This responded to 2mg of IV Ativan. At no time did she lose consciousness, exhibit incontinence, or bite her tongue. She states that the prior day she had a mild headache, but otherwise has not had recent migraines. She has not previously had similar symptoms and does not have a history of seizures. She is also had upper respiratory infection symptoms and a fever on the day of admission At the time of admission, she has persistent L sided weakness, mostly of the upper extremity and minimal numbness. MRI of the brain shows improved areas of chronic gliosis over the right parietal convexity. Negative for stroke Seen by neurology and strongly suspected that she had Jacksonian march the left side of the body and then converted to most likely a partial complex seizure. EEG here is negative for seizure activity but this does not exclude a seizure Her fever likely lowered her threshold for seizure in the gliosis on the brain from previous trauma versus migraine? Likely puts her at risk for seizure activity. She has never had a seizure in the past. Clinical picture strongly suggest seizure and neurology has started on Keppra 500 mg p.o. twice daily She was quite drowsy for 24 hours after admission which then resolved by the following day. No further witnessed seizure activity in the hospital after admission -I discussed the case in depth with neurology-Dr. Willingham is also in agreement that she should not be driving for at least 6 months until she remains seizure- free -I will submit the form to the [facility] that is necessary for reporting -f/u closely with Neuro as an outpt -stable for dc to home (2) History of stroke: Thought to be secondary to migraines? This is by history but there is no stroke seen on MRI. It is possible that the area of gliosis on brain MRI represents an area of old stroke. -Is not on any specific treatment for this -Continue aspirin 81 mg daily (3) Hx of migraines: Is not on any specific treatment for this (4) Fever: With a fever on the day of admission and again the following day, resolved by discharge Was associated with development of URI symptoms and mild cough -Blood cultures no growth to date With upper respiratory infection symptoms and with similar illness- likely a viral syndrome Flu swab PCR here is negative -Supportive care will be given Acetaminophen for fever as needed (5) DVT prophylaxis: SCDs Disposition-stable for dc to home Total Time Total Time Spent Total Time Spent (In Minutes): >30 min Total Time Includes: Examination of the Patient, Discharge Planning, Medication Reconciliation and Communication With Other Providers (Neurology, Dr. Willingham) Discharge Plan Discharge Items Patient Disposition: Home - Self-Care Reason For Visit: SEIZURE LIKE ACTIVITY Discharge Diagnosis: Seizure-Like activity Fever, viral illness Condition: Good Discharge Goals: Decrease discomfort, Diagnostic testing, Improve disease control, Learn about illness and Therapeutic intervention Activity: As commented below Lifting: Gradually increase as tolerated Bathing: No limitations Exercise/Sports: Gradually increase as tolerated Driving/Machine Use Comment: NO DRIVING Non-emergency contact: Primary Care Provider and Neurologist Call non-emergency contact if: you have any medication questions and your symptoms worsen Follow-up/Referrals: Jered Willingham MD [Physician] - (Please call for a follow up appointment within 1 week.) Kedar Edgar [Primary Care Provider] - (Please call for a follow up appointment within 1 week.) Diet: Regular Addtl Provider Instructions: You were admitted for seizure activity. You had an MRI of the brain which showed an old area of scarring which may have precipitated a seizure in the setting of your fever and increased life stress. You also had a CT angiogram of the head and neck that was normal. Your Echocardiogram of the heart only showed mild left ventricular hypertrophy (muscle wall thickening), but was otherwise normal. You had no problems with your heart on the radiation monitor. You were seen by the Neurologist and started on an anti-seizure medicine called Keppra 500mg twice daily. Please follow up with the Neurologist within 1 week. Prescriptions: New aspirin [Ecotrin Low Strength] 81 mg Tablet,Delayed Release (Dr/Ec) 81 mg PO QAM Qty: 30 RF: 0 levetiracetam [Keppra] 500 mg Tablet 500 mg PO BID Qty: 60 RF: 0 Continued multivitamin Tablet 1 tab PO DAILY RF: 0 Dry Eye Relief 1-0.2-0.2 % Drops 1 drp OPHTHALMIC (EYE) BID PRN (Reason: Dry Eye(S)) RF: 0 cholecalciferol (vitamin D3) [Vitamin D3] 5,000 unit Tablet 5,000 unit PO DAILY RF: 0 omega 6-kot-gap-fish oil [Fish Oil] 1,000 mg (120 mg-180 mg) Capsule 1 cap PO DAILY RF: 0 Stand-Alone Forms: [facility] Discharge Orders: Discharge Order (Routine); Ordered 12/17/18 Ordered By: Rosmery Manrique Admission Data Admit Date/Time: 12/15/18 15:48 Attending Provider: Rosmery Manrique Admit Provider: Thai Grant Primary Care Provider: Kedar Edgar Other Providers: Thai Grant ; Jered Willingham Service: Telemetry Other Interventions: Discharge Summary Assessment (RN) Last Done: 12/17/18 14:29 Pending Studies at Discharge: No DC Date/Time DO NOT enter until pt leaves facility: 12/17/18 15:05
--- OUTSIDE RECORDS SUMMARY | 2019-01-01 13:56 | External Medical Summary | Continuity of Care Document ---
:1955 Author Name Monica Lemus, Provider Address Unavailable Unavailable , Care Team Providers Name Role Phone Maulik Lemus, Jered Cee Unavailable [email or web address] Staci MORALES Unavailable Unavailable Unavailable Unavailable Unavailable Problems H/O: stroke (V12.54) (Z86.73) Seizure (780.39) (R56.9) Vitamin D deficiency, unspecified (268.9) (E55.9) Abnormal serum protein electrophoresis (790.99) (R77.8) Lactase deficiency (271.3) (E73.9) Mineral deficiency (269.3) (E61.8) Osteoporosis (733.00) (M81.0) Headache (784.0) (R51) Thalassemia Trait (282.46) Hyperlipidemia (272.4) (E78.5) Allergic rhinitis (477.9) (J30.9) Anemia (285.9) (D64.9) Allergies and Adverse Reactions Sulfa Drugs (Allergy) Reaction: Swelling , Difficulty Swallowing Medications levETIRAcetam 500 MG Oral Tablet; TAKE 1 TABLET TWICE DAILY DIRECTED. Allan Willingham Quantity: 60 Refills: 2 Dry Eye Formula CAPS; TAKE DIRECTED. Refills: 0 Aspirin 81 81 MG Oral Tablet Delayed Release; TAKE 1 TABLET DAILY DIRECTED. Refills: 0 Multiple Vitamin TABS; TAKE 1 TABLET DAILY. Refills: 0 Flonase 50 MCG/ACT SUSP; USE 1 TO 2 SPRAYS IN EACH NOSTRIL O NCE DAILY. Refills: 0 Calcium Citrate + D TABS; One tablet daily Refills: 0 Glucosamine-Chondroitin 750-600 MG Oral Tablet Chewable; Obi e 1 tablet daily Refills: 0 Fish Oil 1000 MG Oral Capsule Refills: 0 Procedures History of Thyroid Surgery Sub-Total Thyroidectomy Status: Completed Immunizations Immunizations not documented Family History Unknown Family Member Family history of Osteoporosis (V17.81) Status: Active Comments: Family History Mother Family history of Liver Cancer Status: Active Social History - Smoking Status Never smoker Plan of Treatment Planned Encounters Appointment; Jered Willingham M.D. Start: 19-Mar-2019 10:15 Req uest Planned Observations Planned Goals not documented Results Creatine Phosphokinase - Laboratory: [facility] Laboratory 1800 CK (Pending) Cora Plasencia [place] [facility] [address] tel: 15-Dec-2018 19:15 CREATINE PHOSPHOKINASE 97 U/L Range: 26 -192 U/L Basic Metabolic Panel Laboratory: [facility] Laboratory 1800 (Pending) Cora Plasencia [place]. [facility] [address] tel: 16-Dec-2018 6:36 SODIUM 140 mmol/L Range: 136-145 mmol /L POTASSIUM 3.9 mmol/L Range: 3.5-5.1 mmo l/L CHLORIDE 110 mmol/L (above high Range: 98-107 mmol/L threshold) CARBON DIOXIDE 24 mmol/L Range: 21-32 m mol/L ANION GAP 6.0 Range: 3-11 BLOOD UREA NITROGEN 9 mg/dl Range: 7-18 mg/dl CREATININE 0.81 mg/dl Range: 0.6-1.2 mg /dl Estimated Creatinine Clearance Range: m l/min 60.3 ml/min Comments: Est. Creat inine Clearance (Mod Cockcroft-Gault) for pharmacydosing purposes. Estimated GFR () Comment s: Units: ml/min 90.9 per 1.73 meters squa redThe estimated GFR (CKD-E PI equation) has not be en validatedfor inpatie nt settings and may not be an accurate reflectiono f renal function in critically ill patie nts or those withrapidly ch anging renal function (e.g. ADOLFO). Estimated GFR (Non- Comments: Uni ts: ml/min [place]) 78.4 per 1.73 meters squa redThe estimated GFR (CKD-E PI equation) has not be en validatedfor inpatie nt settings and may not be an accurate reflectiono f renal function in critically ill patie nts or those withrapidly ch anging renal function (e.g. ADOLFO). BUN/CREATININE RATIO 11.4 Range: 10-20 GLUCOSE 103 mg/dl (above high Range: 70 -99 mg/dl threshold) CALCIUM 8.9 mg/dl Range: 8.5-10.1 mg/ dl Magnesium (Pending) Laboratory: [facility] [address] tel: 16-Dec-2018 6:36 MAGNESIUM 2.1 mg/dl Range: 1.8-2.4 mg/d l CBC With DIFF (Pending) Laboratory: [facility] [address]. [facility] [address] tel: 16-Dec-2018 6:36 WBC 6.42 K/uL Range: 4.8-10.8 K/u L RBC 4.97 {M/uL} Range: 4.2-5.4 M/uL HEMOGLOBIN 10.3 g/dL (below low Range: 12.0-16.0 g/dL threshold) HEMATOCRIT 32.0 % (below low Range: 37- 47 % threshold) MCV 64.4 fL (below low threshold) Range: 80-100 fL MCH 20.7 pg (below low threshold) Range: 25-34 pg MEAN CORPUSCULAR HGB CONC 32.2 Range: 3 2-36 g/dL g/dL RED CELL DISTRIBUTION WIDTH SD Range: 3 6.4-46.3 fL 37.3 fL RED CELL DISTRIBUTION WIDTH CV Range: 1 1.5-14.5 % 16.2 % (above high threshold) PLATELET COUNT 218 K/uL Range: 130-400 K/uL NEUT % 59.8 % Range: % LYMPH % 23.1 % Range: % MONO % 15.7 % Range: % EOS % 0.6 % Range: % BASO % 0.5 % Range: % IG% 0.3 % Range: % Comments: IG paramet er reflects the combination of Metas, Myelos andPromyelocytes. Neutrophils (Auto) 3.84 K/uL Range: 1. 4-6.5 K/uL LYMPH ABS # 1.48 K/uL Range: 1.2-3.4 K/ uL MONO ABS # 1.01 K/uL (above high Range: 0.11-0.59 K/uL threshold) EOS ABS # 0.04 K/uL Range: 0-0.5 K/uL BASO ABS # 0.03 K/uL Range: 0-0.2 K/uL IG# 0.02 K/uL Range: 0.00-0.02 K/ uL POLYCHROMASIA 1+ BASOPHILIC STIPPLING 2+ ANISOCYTOSIS Present MICROCYTOSIS Present SCHISTOCYTES Occasional Act87 Hepatitis C IgG Laboratory: [facility] Laboratory 1800 Screen (Pending) Cora Plasencia [facility] [address] tel: 16-Dec-2018 6:36 Act87 Hepatitis C IgG Screen Neg Range: Neg Comments: This test was performed in compliance with [place] LawAct 87 of 2015.The result is "Negative," meaning there is no evidence ofcurrent infection or prior exposure to Hepatitis C. PCR Influenza A or B Laboratory: [facility] Laboratory 1800 (Pending) Cora Plasencia [facility] [address] tel: 16-Dec-2018 13:30 Influenza A PCR Neg for Influ A Range: Neg Influenza B PCR Neg for Influ B Range: Neg CT Neck Angio With Laboratory: [facility] Diagnostic Contrast Imaging 1800 [facility] 17-Dec-2018 13:24 CTA Neck Angio With Contrast [place], [place] [phone] CT Scan Report Patient: LETITIA MOISE Admit Date: 12/15/18 MR#: [id number] Address1: [address] [place] [address] Acct ID:[id number] Address2: Date: 1955 [facility] Zip: [place] [address] Age: 63 Location: Sex: F Room/Bed: [facility] Att Phy: Rosmery Manrique MD Diagnosis: S EIZURE LIKE ACTIVITY Atiya Phy: Kedar Morales M.D. Service Date: 12/17 Fam Phy: Interpreting Phy: Jovany Flower MD Admit Phy: Thai Grant M.D. Ordering Phy: Jered Willingham MD cc: CT angio neck with con HISTORY: Mental status change h/o right parietal stroke TECHNIQUE: Multiaxial CT angiography of the neck was performed IV contrast: None. All measurements were calculated based on NASCET criteria. Maximum intensity projection images were also obtained. A dose lowering technique was utilized adhering to the principles of ALARA. COMPARISON STUDY: None. FINDINGS: The aortic arch and proximal great vessels are widely patent. There is no significant stenosis, occlusion, or dissection identified within the bilateral common carotid, internal carotid,or vertebral arteries. IMPRESSION: No significant stenosis, occlusion, or dissection identified within the carotid or vertebral arteries. The above report was generated using voice recognition software. It may contain grammatical, syntax or spelling errors. Electronically signed by: Jovany Flower M.D. 12/17/2018 1:27 PM Dictated: 12/17/18 1324 Transcribed: 12/17/[address] Angiography Head W+WO Laboratory: [facility] Diagnostic IV Contr Imaging [address] [facility] 17-Dec-2018 13:27 CTA HEAD ANGIO W+WO IV CONT [place], [place] [phone] CT Scan Report Patient: LETITIA MOISE Admit Date: 12/15/18 MR#: [id number] Address1: [address] [place] [address] [address] Acct ID:[id number] Address2: Date: 1955 [facility] Zip: [place] [address] Age: 63 Location: Sex: F Room/Bed: [facility] Att Phy: Rosmery Manrique MD Diagnosis: S EIZURE LIKE ACTIVITY Atiya Phy: Kedar Morales M.D. Service Date: 12/17 Fam Phy: Interpreting Phy: Jovany Flower MD Admit Phy: Thai Grant M.D. Ordering Phy: Jered Willingham MD cc: CT angio head wo/w HISTORY: Mental status change h/o right parietal stroke TECHNIQUE: Multiaxial CT angiography of the head was performed IV contrast: None. Maximum intensity projection images were also obtained. A dose lowering technique was utilized adhering to the principles of ALARA. COMPARISON: None. FINDINGS: There is no mass, hematoma, midline shift, or acute infarct. Visualized intracranial internal carotid arteries, distal vertebral arteries, and basilar artery are widely patent. There isno significant stenosis, occlusion, or aneurysm seen within the bilateral ACAs, MCAs, or comber tender. IMPRESSION: No significant stenosis, occlusion, or aneurysm within the [place] of [place]. The above report was generated using voice recognition software. It may contain grammatical, syntax or spelling errors. Electronically signed by: Jovany Flower M.D. 12/17/2018 1:29 PM Dictated: 12/17/18 1327 Transcribed: 12/17/18 1327 Vital Signs 22-Dec-2018 13:04 Systolic 119 mm[Hg] Comments: Location: LUE; Position: Sitting Diastolic 76 mm[Hg] Comments: Location: LUE; Position: Sitting Weight 139 lb BSA Calculated 1.66 m2 BMI Calculated 24.62 kg/m2 Height 63 in Heart Rate 62 /min O2 Saturation 99 % Encounters Appointment; Jered Willingham M.D. 22-Dec-2018 13:00 Encounter Diagnosis: Problem not documented Appointment; Sowmya Jules M.D. 04-Jul-2018 13:00 Encounter Diagnosis: Problem not documented Appointment; Sowmya Jules M.D. 02-Jun-2018 11:20 Encounter Diagnosis: Problem not documented Appointment; Jered Willingham M.D. 19-Mar-2019 10:15 Encounter Diagnosis: Problem not documented
== END 2018-12-17 15:05 | disposition home or self-care (01) ==
LOC: 2S 11:01 → ED 11:01 → SUATTDRO 15:48 → 2S 18:12
DX: R56.9 Unspecified convulsions; R50.9 Fever, unspecified; R20.0 Anesthesia of skin